=== PATIENT | female | born 1935 | race African-American/Black ===

== ENCOUNTER 2018-06-09 21:56 | Inpatient (IN) | payer MEDICARE ==
[~2018-06-09] VITALS: Ht 165.1 cm; Wt 35.4 kg
--- NOTE | ~2018-06-09 | MORECARE ---
CASE MANAGEMENT DISCHARGE SUMMARY PATIENT: NOAH CASTILLO UNIT: [id number] ADM DATE: 06/09/18 AGE: 82 : 35 SEX: F ROOM/BED: D.7200 AUTHOR: ASUNCION GOLDSTEIN PHYSICIAN: REFERRING PHYSICIAN: RAH FULTON MD DATE OF SERVICE: 06/16/18 Discharge Plan Patient Name: NOAH CASTILLO Facility: [facility]:[place] : 1935 Planned Disposition: Home Anticipated Discharge Date: 06/13/18 Discharge Date: Expected LOS: 4 Initial Reviewer: [email or web address] Initial Review Date: 06/10/2018 Generated: 06/16/18 10:48 am Comments DCP- Discharge Planning Updated by [email or web address]: Alison Vann on 06/15/18 7:[address] LATE ENTRY 1400 CM RECEIVED AN ORDER FOR ACUTE REHAB FOR PATIENT. PATIENT LIVES IN THE [place], [place]. PHYSICAL THERAPY EVAL ORDERED AND COMPLETED. WILL NEED OT EVAL. . ORDER OBTAINED. PATIENT HAS [facility] MEDICARE SOLUTIONS, A MANAGED MEDICARE PROVIDER. WILL NEED TO CONTACT INSURER FOR PREAUTH AND TO DETERMINE IN-NETWORK PROVIDERS. CM WILL NEED TO FOLLOW UP WITH THE PROVIDER IN THE AM. CM TO FOLLOW TO ASSIST WITH DISCHARGE PLANNING. DCP- Discharge Planning Updated by [email or web address]: Jennifer Adames on 06/11/18 7:[address] Patient Name: NOAH CASTILLO Admission Status: ER Accout number: [id number] Admission Date: 06-09-2018 : 1935 Admission Diagnosis: Attending: RAH FULTON Current LOS: 2 Anticipated DC Date: 06-13-2018 Planned Disposition: Home Primary Insurance: [facility] MEDICARE SOLUTIONS Discharge Planning Comments: CM MET WITH PATIENT REGARDING D/C NEEDS AND PLANS. PATIENT STATED SHE LIVES WITH FAMILY AND ONE OF THEM COULD DRIVE HER HOME AT DISCHARGE. PATIENT STATED SHE HAS A RAMP TO ENTER HOME AND NO STAIRS INSIDE. PATIENT STATED SHE IS INDEPENDENT WITH HER CARE AND HAS A CANE AT HOME. PATIENT STATED HER PCP IS DR. BARNHART ([place]) AND USES [facility] IN [place]. PATIENT WAS OFFERED HOME HEALTH AND SHE STATED DR. LÓPEZ HAD ALREADY SET UP AND SHE CAME TO HOSPITAL THE DAY THEY WERE TO COME OUT. PATEINT STATED SHE WILL CALL DR. BARNHART ONCE HOME. CM CALLED DR. GRANT OFFICE AND THEY STATED [facility] WAS OUT OF NETWORK AND PAPERWORK HAD BEEN FAXED TO [facility] [place] TO SEE PATIENT. CM WILL CONTINUE TO FOLLOW PATIENT WITH D/C NEEDS AND PLANS. PCP DR. BARNHART ([place])[phone] [facility] IN [place] ([place]) [phone] [place] ([place]) [phone] Community Recreation Coordinator: Jennifer Adames DCPIA - Discharge Planning Initial Assessment Updated by [email or web address]: Jennifer Adames on 06/11/18 8:43 am * Is the patient Alert and Oriented? Yes * How many steps to enter\exit or inside your home? RAMP * PCP DR. CALLI LÓPEZ * Pharmacy [facility] IN [place] * Preadmission Environment Home with Family * ADLs Independent * Equipment Cane * List name and contact numbers for known caregivers / representatives who currently or will assist patient after discharge: GARRETT ([place]) [phone] SOY ([place]) [phone] * Verbal permission to speak to the caregivers and representatives has been obtained from the patient. Yes * Community resources currently utilized None * Additional services required to return to the preadmission environment? Yes * Can the patient safely return to the preadmission environment? Yes * Has this patient been hospitalized within the prior 30 days at any hospital? No Last DP export: 06/15/18 7:25 Patient Name: NOAH CASTILLO Page 28780 at 0948 All edits/amendments must be made on the electronic document DICTATION DATE: 06/16/18947 FILE DRAWER FINISHER: LAKESHA 06/16/18947 RPT#: [id number] [place] DATE: STATUS: ADM IN [facility] [address] [place] [address] END OF REPORT
--- NOTE | ~2018-06-09 | MORECARE ---
CASE MANAGEMENT DISCHARGE SUMMARY PATIENT: NOAH CASTILLO UNIT: [id number] ADM DATE: 06/09/18 AGE: 83 : 35 SEX: F ROOM/BED: D.6244 AUTHOR: TRISTON,DOC PHYSICIAN: REFERRING PHYSICIAN: RAH FULTON MD DATE OF SERVICE: 06/19/18 Discharge Plan Patient Name: NOAH CASTILLO Facility: [facility]:[place] : 1935 Planned Disposition: Residential Facility Anticipated Discharge Date: 06/19/18 Discharge Date: Expected LOS: 10 Initial Reviewer: [email or web address] Initial Review Date: 06/10/2018 Generated: 06/19/18 1:39 pm Comments DCP- Discharge Planning Updated by [email or web address]: Yair Irizarry on 06/18/18 4:[address] Patient Name: NOAH CASTILLO Encounter No: [id number] : 1935 Primary Insurance: [facility] MEDICARE SOLUTIONS Anticipated DC Date: 06-19-2018 Planned Disposition: Residential Facility External Planned Provider: [facility], MEDICARE REHAB BED DCP follow-up note: CM RECEIVED CALL FROM [facility], , SPOKE TO [facility] WHO INFORMED CM THAT INSURANCE APPROVED REHAB AND THEY CAN SYSTEMS TECHNOLOGIST PT TOMORROW, 06-19-18. CM NOTIFIED PT IN ROOM WHO IS IN AGREEMENT WITH DISCHARGE TO [facility] TOMORROW. FOR DISCHARGE, CALL NURSE REPORT TO [facility], , FAX DISCHARGE INFORMATION TO [facility] AT [phone]. [facility] TO ARRANGE VAN TRANSPORTATION. YAIR IRIZARRY, CASE GEOVANI DCP- Discharge Planning Updated by [email or web address]: Yair Irizarry on 06/18/18 8:[address] Patient Name: NOAH CASTILLO Encounter No: [id number] : 1935 Primary Insurance: [facility] MEDICARE SOLUTIONS Anticipated DC Date: 06-19-2018 Planned Disposition: ALF FACILITY External Planned Provider: [facility], MEDICARE REHAB BED DCP follow-up note: CM RECEIVED CALL FROM PT'S DAUGHTER IN ROOM WHO INFORMED CM THAT THEY WANT TO CANCEL INPATIENT REHAB REFERRAL IN [place] AND SEND REFERRAL TO [facility] IN [place] FOR REHAB. CM MET WITH PT AND DAUGHTER IN ROOM, PT CONFIRMED THAT IS WHAT SHE WANTS TO DO, CHOICE LETTER FOR [facility] COMPLETED. CM CALLED [facility], , SPOKE TO YANET CADE, NOTIFIED TO CANCEL REFERRAL. CM CALLED [facility], , SPOKE TO ROSS WHO THINKS THEY ARE IN NETWORK WITH PT'S INSURANCE AND WILL SCREEN FOR REHAB ADMISSION. CM FAXED REFERRAL TO [facility] AT [phone]. CM WAITING ADMISSION DETERMINATION FROM [facility] AND INSURANCE AUTHORIZATION FOR REHAB SERVICES. YAIR IRIZARRY CASE MANAGEMENT DCP- Discharge Planning Updated by [id number]: Yair Irizarry on 06/17/18 11:[address] Patient Name: NOAH CASTILLO Encounter No: [id number] : 1935 Primary Insurance: [facility] MEDICARE SOLUTIONS Anticipated DC Date: 06-16-2018 Planned Disposition: Inpatient Rehab External Planned Provider: [facility] DCP follow-up note: CM RECEIVED MESSAGE FROM CHRIS OF [facility], THEY DO NOT HAVE INPATIENT REHAB AT THE FACILITY, THEY HAVE INPATIENT DRUG AND ALCOHOL TREATMENT. CM CALLED [facility], SPOKE TO BILL IN CASE MANAGEMENT WHO INFORMED CM THAT [facility] IS IN NETWORK IN [place] WITH PT'S INSURANCE. CM SPOKE TO PT IN ROOM, NOTIFIED OF ABOVE, PT WOULD LIKE CM TO CALL HOSPITAL IN [facility] TO INQUIRE ABOUT INPATIENT REHAB THERE; PT WILL GO TO [place] IF THEY WILL ACCEPT. PT DOES NOT WANT REHAB REFERRAL SENT TO [facility] AT THIS TIME. CM CALLED [facility], , SPOKE TO YANET CADE WHO INFORMED THEY HAVE INPATIENT REHAB AND WILL CONSIDER PT FOR ADMISSION. CM FAXED REFERRAL TO [facility], . CM NOTIFIED RENAL NURSE BRETT AND PT. CM WAITING ADMISSION DETERMINATION FROM [facility], AND INSURANCE AUTHORIZATION FOR INPATIENT REHAB SERVICES. YAIR IRIZARRY CASE MANAGEMENT DCP- Discharge Planning Updated by [id number]: Yair Irizarry on 06/16/18 12:[address] Patient Name: NOAH CASTILLO Encounter No: [id number] : 1935 Primary Insurance: [facility] MEDICARE SOLUTIONS Anticipated DC Date: 06-16-2018 Planned Disposition: Inpatient Rehab External Planned Provider: [facility] DCP follow-up note: CM SPOKE TO PT AND DAUGHTER IN ROOM REGARDING INPATIENT REHAB PRESCEENING ORDER. NOAH CASTILLO provided verbal consent to discuss current and ongoing needs with/in the presence of: DAUGHTER JAVIER HAJI ([phone]). CM DISCUSSED AVAILABILITY OF INPATIENT REHAB, ALF REHAB PROVIDERS WELL DISCUSSED PT HAVING MANAGED MEDICARE THAT PROVIDERS MAY OR MAY NOT BE IN NETWORK AND THAT INSURANCE MAY OR MAY NOT PAY FOR REQUESTED INPATIENT REHAB SERVICES. PT AND DAUGHTER REPORT THAT PT'S FAMILY IS LOCATED IN [place], PT DOES NOT WANT TO CONSIDER GOING TO A ALF FACILITY AND WANTS REHAB AT THE [facility] IN [place]. PT'S SPOUSE, WHEN ALIVE, WAS TREATED AT THE REHAB AND PT WORKED AT THE [facility] IN THE PAST. IMPORTANT MESSAGE FROM MEDICARE PROVIDED AND EXPLAINED. CM CALLED [facility], , SPOKE TO RAVI WHO REPORTS THEY WILL CONSIDER PT FOR REHAB ADMISSION AND THEY ARE NOT IN NETWORK WITH PT'S INSURANCE COMPANY. RAVI WILL CALL PT AND DISCUSS ADMISSION AND IF ACCEPTED, ANY COPAYS FOR OUT OF NETWORK SERVICES. CM FAXED REFERRAL TO [facility] IN[facility], . PATIENT WILL REQUIRE OCCUPATIONAL THERAPY EVALUATION FAXED TO [facility] INPATIENT RE[facility], WHEN COMPLETED. CM WAITING ADMISSION DETERMINATION FROM [facility] INPATENT REHAB. Yair Irizarry, CASE MANAGEMENT DCP- Discharge Planning Updated by [id number]: Alison Vann on 06/15/18 7:[address] LATE ENTRY 1400 CM RECEIVED AN ORDER FOR ACUTE REHAB FOR PATIENT. PATIENT LIVES IN THE [place], [place]. PHYSICAL THERAPY EVAL ORDERED AND COMPLETED. WILL NEED OT EVAL. . ORDER OBTAINED. PATIENT HAS [facility] MEDICARE [place], A MANAGED MEDICARE PROVIDER. WILL NEED TO CONTACT INSURER FOR PREAUTH AND TO DETERMINE IN-NETWORK PROVIDERS. CM WILL NEED TO FOLLOW UP WITH THE PROVIDER IN THE AM. CM TO FOLLOW TO ASSIST WITH DISCHARGE PLANNING. DCP- Discharge Planning Updated by [email or web address]: Jennifer Adames on 06/11/18 7:[address] Patient Name: NOAH CASTILLO Admission Status: ER Accout number: [id number] Admission Date: 06-09-2018 : 1935 Admission Diagnosis: Attending: RAH FULTON Current LOS: 2 Anticipated DC Date: 06-13-2018 Planned Disposition: Home Primary Insurance: [facility] MEDICARE SOLUTIONS Discharge Planning Comments: CM MET WITH PATIENT REGARDING D/C NEEDS AND PLANS. PATIENT STATED SHE LIVES WITH FAMILY AND ONE OF THEM COULD DRIVE HER HOME AT DISCHARGE. PATIENT STATED SHE HAS A RAMP TO ENTER HOME AND NO STAIRS INSIDE. PATIENT STATED SHE IS INDEPENDENT WITH HER CARE AND HAS A CANE AT HOME. PATIENT STATED HER PCP IS DR. BARNHART ([place]) AND USES [facility] IN [place]. PATIENT WAS OFFERED HOME HEALTH AND SHE STATED DR. LÓPEZ HAD ALREADY SET UP HH AND SHE CAME TO HOSPITAL THE DAY THEY WERE TO COME OUT. PATEINT STATED SHE WILL CALL DR. BARNHART ONCE HOME. CM CALLED DR. GRANT OFFICE AND THEY STATED [facility] WAS OUT OF NETWORK AND PAPERWORK HAD BEEN FAXED TO [facility] [place] TO SEE PATIENT. CM WILL CONTINUE TO FOLLOW PATIENT WITH D/C NEEDS AND PLANS. PCP DR. BARNHART ([place])[phone] [facility] IN [place] ([place]) [phone] [place] ([place]) [phone] Hog Scalder: Jennifer Adames DCPIA - Discharge Planning Initial Assessment Updated by [id number]: Jennifer Adames on 06/11/18 8:43 am * Is the patient Alert and Oriented? Yes * How many steps to enter\exit or inside your home? RAMP * PCP DR. CALLI LÓPEZ * Pharmacy [facility] IN [place] * Preadmission Environment Home with Family * ADLs Independent * Equipment Cane * List name and contact numbers for known caregivers / representatives who currently or will assist patient after discharge: GARRETT ([place]) [phone] SOY ([place]) [phone] * Verbal permission to speak to the caregivers and representatives has been obtained from the patient. Yes * Community resources currently utilized None * Additional services required to return to the preadmission environment? Yes * Can the patient safely return to the preadmission environment? Yes * Has this patient been hospitalized within the prior 30 days at any hospital? No Coverage Notice Reviewer: JUAN DAVID Irizarry Notice Issued Date-Time: 06/16/2018 12:20 Notice Type: IM Discharge Notice Notice Delivered To: Patient Relationship to Patient: Binder Chainstitch Name: Delivery Method: HAND - Hand Delivered Aleah Days: Prior Verbal Notification: Recipient Understood Notice: Yes Recipient Signature: Yes Med Rec Note Co-signed by Attending: Coverage Notice Comment: Reviewer: JUAN DAVID Irizarry Notice Issued Date-Time: 06/18/2018 8:50 Notice Type: Patient Choice Letter Notice Delivered To: Patient Relationship to Patient: Binder Chainstitch Name: Delivery Method: HAND - Hand Delivered Aleah Days: Prior Verbal Notification: Recipient Understood Notice: Yes Recipient Signature: Yes Med Rec Note Co-signed by Attending: Coverage Notice Comment: [facility] Reviewer: JUAN DAVID Irizarry Notice Issued Date-Time: 06/19/2018 9:10 Notice Type: IM Discharge Notice Notice Delivered To: Patient Relationship to Patient: Binder Chainstitch Name: Delivery Method: HAND - Hand Delivered Aleah Days: Prior Verbal Notification: Recipient Understood Notice: Yes Recipient Signature: Yes Med Rec Note Co-signed by Attending: Coverage Notice Comment: Last DP export: 06/18/18 4:21 Patient Name: NOAH CASTILLO Page [id number] at 1240 All edits/amendments must be made on the electronic document DICTATION DATE: 06/19/18 1239 GEAR NICKER: LAKESHA 06/19/18 1239 RPT#: [id number] DC DATE: STATUS: ADM IN [facility] [address] [place] [address] END OF REPORT
--- NOTE | ~2018-06-09 | DS ---
PATIENT:NOAH PARKS :[birth year] MEDICAL RECORD: [id number] DISCHARGE SUMMARY ADMISSION DATE: 06/09/18 DISCHARGE DATE: 06/19/18 HISTORY OF PRESENT ILLNESS: Ms. Parks is a very pleasant 83-year-old black female that I follow in [place] with chronic kidney disease due to longstanding hypertension and arteriosclerosis. She has been stable, but not seen by me within the past year. She was transferred here following an evaluation in the [place] [facility] Room revealing acute renal failure with creatinine over 9 and continued weight loss and chronic anemia and was transferred here for treatment for her acute renal failure. HOSPITAL COURSE: The patient was felt to be volume depleted and was given IV therapy and with IV therapy, her renal function improved and returned to baseline, so that her last creatinine was 1.9, she did not require dialysis. She did have a urinary tract infection that was treated with appropriate antibiotic therapy. During this time, had an episode of gout, treated with steroids, allopurinol and colchicine that improved. She had hypophosphatemia and hypomagnesemia that were treated aggressively. She did have positive stools for blood. Begun on Epogen. Had an EGD by Dr. Phillip that revealed gastritis and will continue her Carafate and PPI at the [facility]. Her daughters were with her and requested rehab therapy and she was accepted for [facility]. At the time of discharge, she was back to baseline. Last blood pressures were stable. Last hemoglobin 10, on erythropoietin. Her last creatinine was 1.9, calcium of 8. We will follow her phosphorus as an outpatient. I did give her a final dose of Neutra-Phos on discharge. DISCHARGE MEDICATIONS: Carafate 1 gram b.i.d., colchicine 0.6 daily, Megace 40 mg daily, Pepcid 20 mg b.i.d., Ultram p.r.n., Zyloprim 100 mg daily, Remeron 7.5 at bedtime, Nephro-Yolanda 1 daily, Epogen 4000 daily, Plavix 75 mg daily. We will see her in 2-4 weeks as follow up in [place]. I have reviewed all the above with her daughters at bedside. DISCHARGE DIAGNOSES: 1. Acute renal failure due to volume depletion, resolved. 2. Urinary tract infection. 3. Acute gout. 4. Hypophosphatemia. 5. Hypomagnesemia. 6. Chronic anemia, on erythropoietin therapy. PLAN: The patient will be discharged to [facility] today. She will continue the above meds as outlined above. I will see her in 2-4 weeks in the office in [place]. I reviewed all the above with her daughters. TRANSINT:[id number] Voice Confirmation ID: [id number] DOCUMENT ID: [id number] CC: [facility] in [place] DISCHARGE SUMMARY REPORT [id number] NOAH PARKS, ISABEL MONTEZ at 0741 CC: [id number] DICTATION DATE: 06/19/18 0746 SHIRT PRESSER: 06/19/18 0833 DIS IN 06/19/18 [facility] [address] [place] [address]
--- NOTE | ~2018-06-09 | MORECARE ---
CASE MANAGEMENT DISCHARGE SUMMARY PATIENT: NOAH CASTILLO UNIT: [id number] ADM DATE: 06/09/18 AGE: 82 : 35 SEX: F ROOM/BED: D.8916 AUTHOR: ASUNCION GOLDSTEIN PHYSICIAN: REFERRING PHYSICIAN: RAH FULTON MD DATE OF SERVICE: 06/16/18 Discharge Plan Patient Name: NOAH CASTILLO Facility: [facility]:[place] : 1935 Planned Disposition: Home Anticipated Discharge Date: 06/16/18 Discharge Date: Expected LOS: 7 Initial Reviewer: [email or web address] Initial Review Date: 06/10/2018 Generated: 06/16/18 1:38 pm Comments DCP- Discharge Planning Updated by [email or web address]: Alison Vann on 06/15/18 7:[address] LATE ENTRY 1400 CM RECEIVED AN ORDER FOR ACUTE REHAB FOR PATIENT. PATIENT LIVES IN THE [place], [place]. PHYSICAL THERAPY EVAL ORDERED AND COMPLETED. WILL NEED OT EVAL. . ORDER OBTAINED. PATIENT HAS [facility] MEDICARE SOLUTIONS, A MANAGED MEDICARE PROVIDER. WILL NEED TO CONTACT INSURER FOR PREAUTH AND TO DETERMINE IN-NETWORK PROVIDERS. CM WILL NEED TO FOLLOW UP WITH THE PROVIDER IN THE AM. CM TO FOLLOW TO ASSIST WITH DISCHARGE PLANNING. DCP- Discharge Planning Updated by [email or web address]: Jennifer Adames on 06/11/18 7:[address] Patient Name: NOAH CASTILLO Admission Status: ER Accout number: [id number] Admission Date: 06-09-2018 : 1935 Admission Diagnosis: Attending: RAH FULTON Current LOS: 2 Anticipated DC Date: 06-13-2018 Planned Disposition: Home Primary Insurance: [facility] MEDICARE SOLUTIONS Discharge Planning Comments: CM MET WITH PATIENT REGARDING D/C NEEDS AND PLANS. PATIENT STATED SHE LIVES WITH FAMILY AND ONE OF THEM COULD DRIVE HER HOME AT DISCHARGE. PATIENT STATED SHE HAS A RAMP TO ENTER HOME AND NO STAIRS INSIDE. PATIENT STATED SHE IS INDEPENDENT WITH HER CARE AND HAS A CANE AT HOME. PATIENT STATED HER PCP IS DR. BARNHART ([place]) AND USES [facility] IN [place]. PATIENT WAS OFFERED HOME HEALTH AND SHE STATED DR. LÓPEZ HAD ALREADY SET UP AND SHE CAME TO HOSPITAL THE DAY THEY WERE TO COME OUT. PATEINT STATED SHE WILL CALL DR. BARNHART ONCE HOME. CM CALLED DR. GRANT OFFICE AND THEY STATED [facility] WAS OUT OF NETWORK AND PAPERWORK HAD BEEN FAXED TO [facility] [place] TO SEE PATIENT. CM WILL CONTINUE TO FOLLOW PATIENT WITH D/C NEEDS AND PLANS. PCP DR. BARNHART ([place])[phone] [facility] [place] ([place]) [phone] [place] ([place]) [phone] Director Summer Sessions: Jennifer Adames DCPIA - Discharge Planning Initial Assessment Updated by [email or web address]: Jennifer Adames on 06/11/18 8:43 am * Is the patient Alert and Oriented? Yes * How many steps to enter\exit or inside your home? RAMP * PCP DR. CALLI LÓPEZ * Pharmacy [facility] IN [place] * Preadmission Environment Home with Family * ADLs Independent * Equipment Cane * List name and contact numbers for known caregivers / representatives who currently or will assist patient after discharge: GARRETT ([place]) [phone] SOY ([place]) [phone] * Verbal permission to speak to the caregivers and representatives has been obtained from the patient. Yes * Community resources currently utilized None * Additional services required to return to the preadmission environment? Yes * Can the patient safely return to the preadmission environment? Yes * Has this patient been hospitalized within the prior 30 days at any hospital? No External Providers External Provider: OTHER-OTHER Next Contact Date: 06/16/2018 Service Request Date: Service Type: Resolution: Reviewer: Comments: Last DP export: 06/16/18 8:48 Patient Name: NOAH CASTILLO Page [id number] at 1239 All edits/amendments must be made on the electronic document DICTATION DATE: 06/16/181237 SAS PROGRAMMER: LAKESHA 06/16/181237 RPT#: [id number] DC DATE: STATUS: ADM IN [facility] [address] [place] [address] END OF REPORT
--- NOTE | ~2018-06-09 | MORECARE ---
CASE MANAGEMENT DISCHARGE SUMMARY PATIENT: NOAH CASTILLO UNIT: [id number] ADM DATE: 06/09/18 AGE: 83 : 35 SEX: F ROOM/BED: D.4379 AUTHOR: ASUNCION GOLDSTEIN PHYSICIAN: REFERRING PHYSICIAN: RAH FULTON MD DATE OF SERVICE: 06/19/18 Discharge Plan Patient Name: NOAH CASTILLO Facility: [facility]:[place] : 1935 Planned Disposition: Retirement Facility Anticipated Discharge Date: 06/19/18 Discharge Date: Expected LOS: 10 Initial Reviewer: [id number] Initial Review Date: 06/10/2018 Generated: 06/19/18 1:46 pm Comments DCP- Discharge Planning Updated by [id number]: Yair Irizarry on 06/19/18 11:[address] Patient Name: NOAH CASTILLO Encounter No: [id number] : 1935 Primary Insurance: [facility] MEDICARE SOLUTIONS Anticipated DC Date: 06-19-2018 Planned Disposition: Retirement Facility External Planned Provider: [facility], MEDICARE REHAB BED DCP follow-up note: CM RECEIVED DISCHARGE ORDER, SPOKE TO PT AND DAUGHTER IN ROOM, BOTH IN AGREEMENT WITH DISCHARGE TODAY TO [facility] FOR REHAB. IMPORTANT MESSAGE FROM MEDICARE PROVIDED AND EXPLAINED. CM SPOKE TO ROSS OF [facility], THEY WILL [facility] SPECIALIST PT IN [place] AFTER LUNCH TODAY. CM FAXED DISCHARGE INFORMATION TO [facility] AT [phone]. CALL NURSE REPORT TO [facility], , [facility] TO ARRANGE VAN TRANSPORTATION. YAIR IRIZARRY, CASE MANAGEMENT DCP- Discharge Planning Updated by [email or web address]: Yair Irizarry on 06/18/18 4:[address] Patient Name: NOAH CASTILLO Encounter No: [id number] : 1935 Primary Insurance: [facility] MEDICARE SOLUTIONS Anticipated DC Date: 06-19-2018 Planned Disposition: Retirement Facility External Planned Provider: [facility], MEDICARE REHAB BED DCP follow-up note: CM RECEIVED CALL FROM [facility], , SPOKE TO ROSS WHO INFORMED CM THAT INSURANCE APPROVED REHAB AND THEY CAN [facility] SPECIALIST PT TOMORROW, 06-19-18. CM NOTIFIED PT IN ROOM WHO IS IN AGREEMENT WITH DISCHARGE TO [facility] TOMORROW. FOR DISCHARGE, CALL NURSE REPORT TO [facility], , FAX DISCHARGE INFORMATION TO [facility] AT [phone]. [facility] TO ARRANGE VAN TRANSPORTATION. MICHAEL HITCHCOCK MANAGEMENT DCP- Discharge Planning Updated by [id number]: Yair Irizarry on 06/18/18 8:[address] Patient Name: NOAH CASTILLO Encounter No: [id number] : 1935 Primary Insurance: [facility] MEDICARE SOLUTIONS Anticipated DC Date: 06-19-2018 Planned Disposition: [facility]DC FACILITY External Planned Provider: [facility] MEDICARE REHAB BED DCP follow-up note: CM RECEIVED CALL FROM PT'S DAUGHTER IN ROOM WHO INFORMED CM THAT THEY WANT TO CANCEL INPATIENT REHAB REFERRAL IN [place] AND SEND REFERRAL TO [facility] IN [place] FOR REHAB. CM MET WITH PT AND DAUGHTER IN ROOM, PT CONFIRMED THAT IS WHAT SHE WANTS TO DO, CHOICE LETTER FOR [facility] COMPLETED. CM CALLED [facility], , SPOKE TO YANET CADE, NOTIFIED TO CANCEL REFERRAL. CM CALLED [facility], , SPOKE TO ROSS WHO THINKS THEY ARE IN NETWORK WITH PT'S INSURANCE AND WILL SCREEN FOR REHAB ADMISSION. CM FAXED REFERRAL TO [facility] AT [phone]. CM WAITING ADMISSION DETERMINATION FROM [facility] AND INSURANCE AUTHORIZATION FOR REHAB SERVICES. MICHAEL HITCHCOCK MANAGEMENT DCP- Discharge Planning Updated by [id number]: Yair Irizarry on 06/17/18 11:[address] Patient Name: NOAH CASTILLO Encounter No: [id number] : 1935 Primary Insurance: [facility] MEDICARE SOLUTIONS Anticipated DC Date: 06-16-2018 Planned Disposition: Inpatient Rehab External Planned Provider: [facility] INPATIENT REH[facility] DCP follow-up note: CM RECEIVED MESSAGE FROM CHRIS OF [facility], THEY DO NOT HAVE INPATIENT REHAB AT THE FACILITY, THEY HAVE INPATIENT DRUG AND ALCOHOL TREATMENT. CM CALLED [facility], SPOKE TO BILL IN CASE MANAGEMENT WHO INFORMED CM THAT [facility] IS IN NETWORK IN [place] WITH PT'S INSURANCE. CM SPOKE TO PT IN ROOM, NOTIFIED OF ABOVE, PT WOULD LIKE CM TO CALL HOSPITAL IN [facility] TO INQUIRE ABOUT INPATIENT REHAB THERE; PT WILL GO TO [place] IF THEY WILL ACCEPT. PT DOES NOT WANT REHAB REFERRAL SENT TO [facility] AT THIS TIME. CM CALLED [facility], , SPOKE TO YANET CADE WHO INFORMED THEY HAVE INPATIENT REHAB AND WILL CONSIDER PT FOR ADMISSION. CM FAXED REFERRAL TO [facility], . CM NOTIFIED RENAL NURSE BRETT AND PT. CM WAITING ADMISSION DETERMINATION FROM [facility], AND INSURANCE AUTHORIZATION FOR INPATIENT REHAB SERVICES. YAIR IRIZARYR, CASE MANAGEMENT DCP- Discharge Planning Updated by [id number]: Yair Irizarry on 06/16/18 12:[address] Patient Name: NOAH CASTILLO Encounter No: [id number] : 1935 Primary Insurance: [facility] MEDICARE SOLUTIONS Anticipated DC Date: 06-16-2018 Planned Disposition: Inpatient Rehab External Planned Provider: [facility] INPATIENT REHAB DCP follow-up note: CM SPOKE TO PT AND DAUGHTER IN ROOM REGARDING INPATIENT REHAB PRESCEENING ORDER. NOAH CASTILLO provided verbal consent to discuss current and ongoing needs with/in the presence of: DAUGHTER JAVIER HAJI ([phone]). CM DISCUSSED AVAILABILITY OF INPATIENT REHAB, [facility] REHAB PROVIDERS WELL DISCUSSED PT HAVING MANAGED MEDICARE THAT PROVIDERS MAY OR MAY NOT BE IN NETWORK AND THAT INSURANCE MAY OR MAY NOT PAY FOR REQUESTED INPATIENT REHAB SERVICES. PT AND DAUGHTER REPORT THAT PT'S FAMILY IS LOCATED IN [place], PT DOES NOT WANT TO CONSIDER GOING TO A [facility] FACILITY AND WANTS REHAB AT THE [facility] IN [place]. PT'S SPOUSE, WHEN ALIVE, WAS TREATED AT THE REHAB AND PT WORKED AT THE MEDICAL CENTER IN THE PAST. IMPORTANT MESSAGE FROM MEDICARE PROVIDED AND EXPLAINED. CM CALLED [facility], , SPOKE TO RAVI WHO REPORTS THEY WILL CONSIDER PT FOR REHAB ADMISSION AND THEY ARE NOT IN NETWORK WITH PT'S INSURANCE COMPANY. RAVI WILL CALL PT AND DISCUSS ADMISSION AND IF ACCEPTED, ANY COPAYS FOR OUT OF NETWORK SERVICES. CM FAXED REFERRAL TO [facility] INPATIENT REHAB, . PATIENT WILL REQUIRE OCCUPATIONAL THERAPY EVALUATION FAXED TO [facility], WHEN COMPLETED. CM WAITING ADMISSION DETERMINATION FROM [facility] INPATENT REHAB. Yair Irizarry, CASE MANAGEMENT DCP- Discharge Planning Updated by [id number]: Alison Soo on 06/15/18 7:[address] LATE ENTRY 1400 CM RECEIVED AN ORDER FOR ACUTE REHAB FOR PATIENT. PATIENT LIVES IN THE [place], [place]. PHYSICAL THERAPY EVAL ORDERED AND COMPLETED. WILL NEED OT EVAL. . ORDER OBTAINED. PATIENT HAS [facility] MEDICARE SOLUTIONS, A MANAGED MEDICARE PROVIDER. WILL NEED TO CONTACT INSURER FOR PREAUTH AND TO DETERMINE IN-NETWORK PROVIDERS. CM WILL NEED TO FOLLOW UP WITH THE PROVIDER IN THE AM. CM TO FOLLOW TO ASSIST WITH DISCHARGE PLANNING. DCP- Discharge Planning Updated by [id number]: Jennifer Adames on 06/11/18 7:[address] Patient Name: NOAH CASTILLO Admission Status: ER Accout number: [id number] Admission Date: 06-09-2018 : 1935 Admission Diagnosis: Attending: RAH FULTON Current LOS: 2 Anticipated DC Date: 06-13-2018 Planned Disposition: Home Primary Insurance: [facility] MEDICARE SOLUTIONS Discharge Planning Comments: CM MET WITH PATIENT REGARDING D/C NEEDS AND PLANS. PATIENT STATED SHE LIVES WITH FAMILY AND ONE OF THEM COULD DRIVE HER HOME AT DISCHARGE. PATIENT STATED SHE HAS A RAMP TO ENTER HOME AND NO STAIRS INSIDE. PATIENT STATED SHE IS INDEPENDENT WITH HER CARE AND HAS A CANE AT HOME. PATIENT STATED HER PCP IS DR. BARNHART ([place]) AND USES [facility] IN [place]. PATIENT WAS OFFERED HOME HEALTH AND SHE STATED DR. LÓPEZ HAD ALREADY SET UP HH AND SHE CAME TO HOSPITAL THE DAY THEY WERE TO COME OUT. PATEINT STATED SHE WILL CALL DR. BARNHART ONCE HOME. CM CALLED DR. GRANT OFFICE AND THEY STATED [facility] WAS OUT OF NETWORK AND PAPERWORK HAD BEEN FAXED TO [facility] IN [place] TO SEE PATIENT. CM WILL CONTINUE TO FOLLOW PATIENT WITH D/C NEEDS AND PLANS. PCP DR. BARNHART ([place])[phone] [facility] IN [place] GAR[place]TT ([place]) [phone] [place] ([place]) [phone] Pearl Peller: Jennifer TOUSSAINTA - Discharge Planning Initial Assessment Updated by [email or web address]: Jennifer Adames on 06/11/18 8:43 am * Is the patient Alert and Oriented? Yes * How many steps to enter\exit or inside your home? RAMP * PCP DR. CALLI LÓPEZ * Pharmacy [facility] IN [place] * Preadmission Environment Home with Family * ADLs Independent * Equipment Cane * List name and contact numbers for known caregivers / representatives who currently or will assist patient after discharge: GARRETT ([place]) [phone] SOY ([place]) [phone] * Verbal permission to speak to the caregivers and representatives has been obtained from the patient. Yes * Community resources currently utilized None * Additional services required to return to the preadmission environment? Yes * Can the patient safely return to the preadmission environment? Yes * Has this patient been hospitalized within the prior 30 days at any hospital? No Coverage Notice Reviewer: [id number] Irizarry Notice Issued Date-Time: 06/18/2018 8:50 Notice Type: Patient Choice Letter Notice Delivered To: Patient Relationship to Patient: Supervisor Estimator And Drafter Name: Delivery Method: HAND - Hand Delivered Aleah Days: Prior Verbal Notification: Recipient Understood Notice: Yes Recipient Signature: Yes Med Rec Note Co-signed by Attending: Coverage Notice Comment: [facility] Reviewer: [id number] Irizarry Notice Issued Date-Time: 06/19/2018 9:10 Notice Type: IM Discharge Notice Notice Delivered To: Patient Relationship to Patient: Supervisor Estimator And Drafter Name: Delivery Method: HAND - Hand Delivered Aleah Days: Prior Verbal Notification: Recipient Understood Notice: Yes Recipient Signature: Yes Med Rec Note Co-signed by Attending: Coverage Notice Comment: Reviewer: [id number] Irizarry Notice Issued Date-Time: 06/16/2018 12:20 Notice Type: IM Discharge Notice Notice Delivered To: Patient Relationship to Patient: Supervisor Estimator And Drafter Name: Delivery Method: HAND - Hand Delivered Aleah Days: Prior Verbal Notification: Recipient Understood Notice: Yes Recipient Signature: Yes Med Rec Note Co-signed by Attending: Coverage Notice Comment: Last DP export: 06/19/18 11:39 Patient Name: NOAH CASTILLO Page [id number] at 1247 All edits/amendments must be made on the electronic document DICTATION DATE: 06/19/181245 SUPERVISOR SHUTTLE VENEERING: LAKESHA 06/19/18 1246 RPT#: [id number] DC DATE: STATUS: ADM IN [facility] [address] [place] [address] END OF REPORT
--- NOTE | ~2018-06-09 | MORECARE ---
CASE MANAGEMENT DISCHARGE SUMMARY PATIENT: NOAH CASTILLO UNIT: [id number] ADM DATE: 06/09/18 AGE: 82 : 35 SEX: F ROOM/BED: D.2129 AUTHOR: ASUNCION GOLDSTEIN PHYSICIAN: REFERRING PHYSICIAN: RAH FULTON MD DATE OF SERVICE: 06/11/18 Discharge Plan Patient Name: NOAH CASITLLO [facility] [facility] 1935 Planned Disposition: Home Anticipated Discharge Date: 06/13/18 Discharge Date: Expected LOS: 4 Initial Reviewer: [email or web address] Initial Review Date: 06/10/2018 Generated: 06/11/18 9:46 am DCPIA - Discharge Planning Initial Assessment Updated by [id number]: Jennifer Adames on 06/11/18 8:43 am * Is the patient Alert and Oriented? Yes * How many steps to enter\exit or inside your home? RAMP * PCP DR. CALLI LÓPEZ * Pharmacy [facility] IN [place] * Preadmission Environment Home with Family * ADLs Independent * Equipment Cane * List name and contact numbers for known caregivers / representatives who currently or will assist patient after discharge: GARRETT ([place]) [phone] SOY ([place]) [phone] * Verbal permission to speak to the caregivers and representatives has been obtained from the patient. Yes * Community resources currently utilized None * Additional services required to return to the preadmission environment? Yes * Can the patient safely return to the preadmission environment? Yes * Has this patient been hospitalized within the prior 30 days at any hospital? No Patient Name: NOAH CASTILLO Page [phone] at 0847 All edits/amendments must be made on the electronic document DICTATION DATE: 06/11/18845 ASSISTANT CORPORATE CONTROLLER: LAKESHA 06/11/18845 RPT#: [id number] DC DATE: STATUS: ADM IN [facility] [address] [place] [address] END OF REPORT
--- NOTE | ~2018-06-09 | MORECARE ---
CASE MANAGEMENT DISCHARGE SUMMARY PATIENT: NOAH CASTILLO UNIT: [id number] ADM DATE: 06/09/18 AGE: 82 : 35 SEX: F ROOM/BED: D.5718 AUTHOR: TRISTONDOC PHYSICIAN: REFERRING PHYSICIAN: RAH FULTON MD DATE OF SERVICE: 06/17/18 Discharge Plan Patient Name: NOAH CASTILLO Facility: [facility]:[place] : 1935 Planned Disposition: Inpatient Rehab Anticipated Discharge Date: 06/16/18 Discharge Date: Expected LOS: 7 Initial Reviewer: [id number] Initial Review Date: 06/10/2018 Generated: 06/17/18 1:21 pm Comments DCP- Discharge Planning Updated by [id number]: Michael Kelly on 06/16/18 12:[address] Patient Name: NOAH CASTILLO Encounter No: [id number] : 1935 Primary Insurance: [facility] MEDIC[employer] SOLUTIONS Anticipated DC Date: 06-16-2018 Planned Disposition: Inpatient Rehab External Planned Provider: [facility] INPATIENT REHAB DCP follow-up note: CM SPOKE TO PT AND DAUGHTER IN ROOM REGARDING INPATIENT REHAB PRESCEENING ORDER. NOAH CASTILLO provided verbal consent to discuss current and ongoing needs with/in the presence of: DAUGHTER JAVIER HAJI ([phone]). CM DISCUSSED AVAILABILITY OF INPATIENT REHAB, [facility] RE[facility] PROVIDERS WELL DISCUSSED PT HAVING MANAGED MEDICARE THAT PROVIDERS MAY OR MAY NOT BE IN NETWORK AND THAT INSURANCE MAY OR MAY NOT PAY FOR REQUESTED INPATIENT REHAB SERVICES. PT AND DAUGHTER REPORT THAT PT'S FAMILY IS LOCATED IN [place], PT DOES NOT WANT TO CONSIDER GOING TO A [facility] FACILITY AND WANTS REHAB AT THE [facility] IN [place]. PT'S SPOUSE, WHEN ALIVE, WAS TREATED AT THE REHAB AND PT WORKED AT THE MEDICAL CENTER IN THE PAST. IMPORTANT MESSAGE FROM MEDICARE PROVIDED AND EXPLAINED. CM CALLED [facility] INPAT[facility], , SPOKE TO RAVI WHO REPORTS THEY WILL CONSIDER PT FOR REHAB ADMISSION AND THEY ARE NOT IN NETWORK WITH PT'S INSURANCE COMPANY. RAVI WILL CALL PT AND DISCUSS ADMISSION AND IF ACCEPTED, ANY COPAYS FOR OUT OF NETWORK SERVICES. CM FAXED REFERRAL TO [facility] INPATIENT REHAB, . PATIENT WILL REQUIRE OCCUPATIONAL THERAPY EVALUATION FAXED TO [facility] INPATIENT REHAB, WHEN COMPLETED. CM WAITING ADMISSION DETERMINATION FROM [facility] INPATENT REHAB. Michael Kelly, CASE MANAGEMENT DCP- Discharge Planning Updated by [id number]: Alison Vann on 06/15/18 7:[address] LATE ENTRY 1400 CM RECEIVED AN ORDER FOR ACUTE REHAB FOR PATIENT. PATIENT LIVES IN THE [place], [place]. PHYSICAL THERAPY EVAL ORDERED AND COMPLETED. WILL NEED OT EVAL. . ORDER OBTAINED. PATIENT HAS [facility] MEDICARE SOLUTIONS, A MANAGED MEDICARE PROVIDER. WILL NEED TO CONTACT INSURER FOR PREAUTH AND TO DETERMINE IN-NETWORK PROVIDERS. CM WILL NEED TO FOLLOW UP WITH THE PROVIDER IN THE AM. CM TO FOLLOW TO ASSIST WITH DISCHARGE PLANNING. DCP- Discharge Planning Updated by [id number]: Jennifer Adames on 06/11/18 7:[address] Patient Name: NOAH CASTILLO Admission Status: ER Accout number: [id number] Admission Date: 06-09-2018 : 1935 Admission Diagnosis: Attending: RAH FULTON Current LOS: 2 Anticipated DC Date: 06-13-2018 Planned Disposition: Home Primary Insurance: [facility] [employer] SOLUTIONS Discharge Planning Comments: CM MET WITH PATIENT REGARDING D/C NEEDS AND PLANS. PATIENT STATED SHE LIVES WITH FAMILY AND ONE OF THEM COULD DRIVE HER HOME AT DISCHARGE. PATIENT STATED SHE HAS A RAMP TO ENTER HOME AND NO STAIRS INSIDE. PATIENT STATED SHE IS INDEPENDENT WITH HER CARE AND HAS A CANE AT HOME. PATIENT STATED HER PCP IS DR. BARNHART ([place]) AND USES [facility] IN [place]. PATIENT WAS OFFERED HOME HEALTH AND SHE STATED DR. LÓPEZ HAD ALREADY SET UP HH AND SHE CAME TO HOSPITAL THE DAY THEY WERE TO COME OUT. PATEINT STATED SHE WILL CALL DR. BARNHART ONCE HOME. CM CALLED DR. GRANT OFFICE AND THEY STATED [facility] WAS OUT OF NETWORK AND PAPERWORK HAD BEEN FAXED TO [facility] IN [place] TO SEE PATIENT. CM WILL CONTINUE TO FOLLOW PATIENT WITH D/C NEEDS AND PLANS. PCP DR. BARNHART ([place])[phone] [facility] IN [place] GARRETT ([place]) [phone] [place] ([place]) [phone] Data Assistant: Jennifer Adames DCPIA - Discharge Planning Initial Assessment Updated by [id number]: Jennifer Adames on 06/11/18 8:43 am * Is the patient Alert and Oriented? Yes * How many steps to enter\exit or inside your home? RAMP * PCP DR. CALLI LÓPEZ * Pharmacy [facility] IN [place] * Preadmission Environment Home with Family * ADLs Independent * Equipment Cane * List name and contact numbers for known caregivers / representatives who currently or will assist patient after discharge: GARRETT ([place]) [phone] SOY ([place]) [phone] * Verbal permission to speak to the caregivers and representatives has been obtained from the patient. Yes * Community resources currently utilized None * Additional services required to return to the preadmission environment? Yes * Can the patient safely return to the preadmission environment? Yes * Has this patient been hospitalized within the prior 30 days at any hospital? No External Providers External Provider: OTHER-OTHER Next Contact Date: 06/18/2018 Service Request Date: Service Type: Resolution: Reviewer: Comments: External Provider: OTHER-OTHER Next Contact Date: 06/16/2018 Service Request Date: Service Type: Resolution: Reviewer: Comments: Coverage Notice Reviewer: [id number] - Michael Kelly Notice Issued Date-Time: 06/16/2018 12:20 Notice Type: IM Discharge Notice Notice Delivered To: Patient Relationship to Patient: Sql Ssrs Developer Name: Delivery Method: HAND - Hand Delivered Aleah Days: Prior Verbal Notification: Recipient Understood Notice: Yes Recipient Signature: Yes Med Rec Note Co-signed by Attending: Coverage Notice Comment: Last DP export: 06/16/18 1:02 Patient Name: NOAH CASTILLO Page [phone] at 1221 All edits/amendments must be made on the electronic document DICTATION DATE: 06/17/18 1221 DISPLAY MECHANIC: LAKESHA 06/17/18 1221 RPT#: [id number] [place] DATE: STATUS: ADM IN [facility] [address] [place] [address] END OF REPORT
--- NOTE | ~2018-06-09 | MORECARE ---
CASE MANAGEMENT DISCHARGE SUMMARY PATIENT: NOAH CASTILLO UNIT: [id number] ADM DATE: 06/09/18 AGE: 82 : 35 SEX: F ROOM/BED: D.8142 AUTHOR: TRISTONDOC PHYSICIAN: REFERRING PHYSICIAN: RAH FULTON MD DATE OF SERVICE: 06/18/18 Discharge Plan Patient Name: NOAH CASTILLO Facility: [facility]:[place] : 1935 Planned Disposition: Chcf Facility Anticipated Discharge Date: 06/19/18 Discharge Date: Expected LOS: 10 Initial Reviewer: [id number] Initial Review Date: 06/10/2018 Generated: 06/18/18 6:21 pm Comments DCP- Discharge Planning Updated by [id number]: Yair Irizarry on 06/18/18 8:[address] Patient Name: NOAH CASTILLO Encounter No: [id number] : 1935 Primary Insurance: [facility] MEDICARE SOLUTIONS Anticipated DC Date: 06-19-2018 Planned Disposition: PENITENTIARY FACILITY External Planned Provider: [facility] DCP follow-up note: CM RECEIVED CALL FROM PT'S DAUGHTER IN ROOM WHO INFORMED CM THAT THEY WANT TO CANCEL INPATIENT REHAB REFERRAL IN [place] AND SEND REFERRAL TO [facility] IN [place] FOR REHAB. CM MET WITH PT AND DAUGHTER IN ROOM, PT CONFIRMED THAT IS WHAT SHE WANTS TO DO, CHOICE LETTER FOR [facility] COMPLETED. CM CALLED [facility], , SPOKE TO YANET CADE, NOTIFIED TO CANCEL REFERRAL. CM CALLED [facility], , SPOKE TO ROSS WHO THINKS THEY ARE IN NETWORK WITH PT'S INSURANCE AND WILL SCREEN FOR REHAB ADMISSION. CM FAXED REFERRAL TO [facility] AT [phone]. CM WAITING ADMISSION DETERMINATION FROM [facility] AND INSURANCE AUTHORIZATION FOR REHAB SERVICES. YAIR IRIZARRY CASE MANAGEMENT DCP- Discharge Planning Updated by [id number]: Yair Irizarry on 06/17/18 11:[address] Patient Name: NOAH CASTILLO Encounter No: [id number] : 1935 Primary Insurance: [facility] MEDICARE SOLUTIONS Anticipated DC Date: 06-16-2018 Planned Disposition: Inpatient Rehab External Planned Provider: [facility]PATIENT REH[facility] DCP follow-up note: CM RECEIVED MESSAGE FROM [facility] OF [facility], THEY DO NOT HAVE INPATIENT REHAB AT THE FACILITY, THEY HAVE INPATIENT DRUG AND ALCOHOL TREATMENT. CM CALLED [facility], SPOKE TO BILL IN CASE MANAGEMENT WHO INFORMED CM THAT [facility] IS IN NETWORK IN [place] WITH PT'S INSURANCE. CM SPOKE TO PT IN ROOM, NOTIFIED OF ABOVE, PT WOULD LIKE CM TO CALL HOSPITAL IN [facility] TO INQUIRE ABOUT INPATIENT REHAB THERE; PT WILL GO TO [place] IF THEY WILL ACCEPT. PT DOES NOT WANT REHAB REFERRAL SENT TO [facility] AND [facility] AT THIS TIME. CM CALLED [facility], , SPOKE TO YANET CADE WHO INFORMED THEY HAVE INPATIENT REHAB AND WILL CONSIDER PT FOR ADMISSION. CM [facility], . CM NOTIFIED RENAL NURSE BRETT AND PT. CM WAITING ADMISSION DETERMINATION FROM [facility], AND INSURANCE AUTHORIZATION FOR INPATIENT REHAB SERVICES. YAIR IRIZARRY, CASE MANAGEMENT DCP- Discharge Planning Updated by [id number]: Yair Irizarry on 06/16/18 12:[address] Patient Name: NOAH CASTILLO Encounter No: [id number] : 1935 Primary Insurance: [facility] MEDICARE SOLUTIONS Anticipated DC Date: 06-16-2018 Planned Disposition: Inpatient Rehab External Planned Provider: [facility] INPATIENT REHAB DCP follow-up note: CM SPOKE TO PT AND DAUGHTER IN ROOM REGARDING INPATIENT REHAB PRESCEENING ORDER. NOAH CASTILLO provided verbal consent to discuss current and ongoing needs with/in the presence of: DAUGHTER JAVIER HAJI ([phone]). CM DISCUSSED AVAILABILITY OF INPATIENT REHAB, PENITENTIARY REHAB PROVIDERS WELL DISCUSSED PT HAVING MANAGED MEDICARE THAT PROVIDERS MAY OR MAY NOT BE IN NETWORK AND THAT INSURANCE MAY OR MAY NOT PAY FOR REQUESTED INPATIENT REHAB SERVICES. PT AND DAUGHTER REPORT THAT PT'S FAMILY IS LOCATED IN [place], PT DOES NOT WANT TO CONSIDER GOING TO A PENITENTIARY FACILITY AND WANTS REHAB AT THE [facility] IN [place]. PT'S SPOUSE, WHEN ALIVE, WAS TREATED AT THE REHAB AND PT WORKED AT THE MEDICAL CENTER IN THE PAST. IMPORTANT MESSAGE FROM MEDICARE PROVIDED AND EXPLAINED. CM CALLED [facility], , SPOKE TO RAVI WHO REPORTS THEY WILL CONSIDER PT FOR REHAB ADMISSION AND THEY ARE NOT IN NETWORK WITH PT'S INSURANCE COMPANY. RAVI WILL CALL PT AND DISCUSS ADMISSION AND IF ACCEPTED, ANY COPAYS FOR OUT OF NETWORK SERVICES. CM FAXED REFERRAL TO [facility] INPATIENT [facility], . PATIENT WILL REQUIRE OCCUPATIONAL THERAPY EVALUATION FAXED TO [facility] INPATIENT [facility], WHEN COMPLETED. CM WAITING ADMISSION DETERMINATION FROM [facility] INPATENT REHAB. Yair Irizarry, CASE MANAGEMENT DCP- Discharge Planning Updated by [id number]: Alison Vann on 06/15/18 7:[address] LATE ENTRY 1400 CM RECEIVED AN ORDER FOR ACUTE REHAB FOR PATIENT. PATIENT LIVES IN THE [place], [place]. PHYSICAL THERAPY EVAL ORDERED AND COMPLETED. WILL NEED OT EVAL. . ORDER OBTAINED. PATIENT HAS [facility] MEDICARE SOLUTIONS, A MANAGED MEDICARE PROVIDER. WILL NEED TO CONTACT INSURER FOR PREAUTH AND TO DETERMINE IN-NETWORK PROVIDERS. CM WILL NEED TO FOLLOW UP WITH THE PROVIDER IN THE AM. CM TO FOLLOW TO ASSIST WITH DISCHARGE PLANNING. DCP- Discharge Planning Updated by [id number]: Jennifer Adames on 06/11/18 7:[address] Patient Name: NOAH CASTILLO Admission Status: ER Accout number: [id number] Admission Date: 06-09-2018 : 1935 Admission Diagnosis: Attending: RAH FULTON Current LOS: 2 Anticipated DC Date: 06-13-2018 Planned Disposition: Home Primary Insurance: [facility] MEDICARE SOLUTIONS Discharge Planning Comments: CM MET WITH PATIENT REGARDING D/C NEEDS AND PLANS. PATIENT STATED SHE LIVES WITH FAMILY AND ONE OF THEM COULD DRIVE HER HOME AT DISCHARGE. PATIENT STATED SHE HAS A RAMP TO ENTER HOME AND NO STAIRS INSIDE. PATIENT STATED SHE IS INDEPENDENT WITH HER CARE AND HAS A CANE AT HOME. PATIENT STATED HER PCP IS DR. BARNHART ([place]) AND USES [facility] IN [place]. PATIENT WAS OFFERED HOME HEALTH AND SHE STATED DR. LÓPEZ HAD ALREADY SET UP HH AND SHE CAME TO HOSPITAL THE DAY THEY WERE TO COME OUT. PATEINT STATED SHE WILL CALL DR. BARNHART ONCE HOME. CM CALLED DR. GRANT OFFICE AND THEY STATED [facility] WAS OUT OF NETWORK AND PAPERWORK HAD BEEN FAXED TO [facility] [place] TO SEE PATIENT. CM WILL CONTINUE TO FOLLOW PATIENT WITH D/C NEEDS AND PLANS. PCP DR. BARNHART ([place])[phone] [facility] IN [place] ([place]) [phone] [place] ([place]) [phone] Tax Appraiser: Jennifer Adames DCPIA - Discharge Planning Initial Assessment Updated by [email or web address]: Jennifer Adames on 06/11/18 8:43 am * Is the patient Alert and Oriented? Yes * How many steps to enter\exit or inside your home? RAMP * PCP DR. CALLI LÓPEZ * Pharmacy [facility] IN [place] * Preadmission Environment Home with Family * ADLs Independent * Equipment Cane * List name and contact numbers for known caregivers / representatives who currently or will assist patient after discharge: GARRETT ([place]) [phone] SOY ([place]) [phone] * Verbal permission to speak to the caregivers and representatives has been obtained from the patient. Yes * Community resources currently utilized None * Additional services required to return to the preadmission environment? Yes * Can the patient safely return to the preadmission environment? Yes * Has this patient been hospitalized within the prior 30 days at any hospital? No Coverage Notice Reviewer: [id number] Melissa Irizarry Notice Issued Date-Time: 06/16/2018 12:20 Notice Type: IM Discharge Notice Notice Delivered To: Patient Relationship to Patient: Special Weapons And Tactics Officer Name: Delivery Method: HAND - Hand Delivered Aleah Days: Prior Verbal Notification: Recipient Understood Notice: Yes Recipient Signature: Yes Med Rec Note Co-signed by Attending: Coverage Notice Comment: Reviewer: [id number] Irizarry Notice Issued Date-Time: 06/18/2018 8:50 Notice Type: Patient Choice Letter Notice Delivered To: Patient Relationship to Patient: Special Weapons And Tactics Officer Name: Delivery Method: HAND - Hand Delivered Aleah Days: Prior Verbal Notification: Recipient Understood Notice: Yes Recipient Signature: Yes Med Rec Note Co-signed by Attending: Coverage Notice Comment: [facility] Last DP export: 06/18/18 8:20 Patient Name: NOAH CASTILLO Page 90557 at 1721 All edits/amendments must be made on the electronic document DICTATION DATE: 06/18/181719 ENGINEERING GROUP LEADER: LAKESHA 06/18/181719 RPT#: [id number] DC DATE: STATUS: ADM IN [facility] [address] [place] [address] END OF REPORT
--- NOTE | ~2018-06-09 | MORECARE ---
CASE MANAGEMENT DISCHARGE SUMMARY PATIENT: NOAH CASTILLO UNIT: [id number] ADM DATE: 06/09/18 AGE: 82 : 35 SEX: F ROOM/BED: D.8844 AUTHOR: ASUNCION GOLDSTEIN PHYSICIAN: REFERRING PHYSICIAN: RAH FULTON MD DATE OF SERVICE: 06/11/18 Discharge Plan Patient Name: NOAH CASTILLO Facility: [facility]:[place] : 1935 Planned Disposition: Home Anticipated Discharge Date: 06/13/18 Discharge Date: Expected LOS: 4 Initial Reviewer: [id number] Initial Review Date: 06/10/2018 Generated: 06/11/18 9:59 am Comments DCP- Discharge Planning Updated by [id number]: Jennifer Adames on 06/11/18 7:[address] Patient Name: NOAH CASTILLO Admission Status: ER Accout number: [id number] Admission Date: 06-09-2018 : 1935 Admission Diagnosis: Attending: RAH FULTON Current LOS: 2 Anticipated DC Date: 06-13-2018 Planned Disposition: Home Primary Insurance: [facility] MEDICARE SOLUTIONS Discharge Planning Comments: CM MET WITH PATIENT REGARDING D/C NEEDS AND PLANS. PATIENT STATED SHE LIVES WITH FAMILY AND ONE OF THEM COULD DRIVE HER HOME AT DISCHARGE. PATIENT STATED SHE HAS A RAMP TO ENTER HOME AND NO STAIRS INSIDE. PATIENT STATED SHE IS INDEPENDENT WITH HER CARE AND HAS A CANE AT HOME. PATIENT STATED HER PCP IS DR. BARNHART ([place]) AND USES [facility] IN [place]. PATIENT WAS OFFERED HOME HEALTH AND SHE STATED DR. LÓPEZ HAD ALREADY SET UP HH AND SHE CAME TO HOSPITAL THE DAY THEY WERE TO COME OUT. PATEINT STATED SHE WILL CALL DR. BARNHART ONCE HOME. CM CALLED DR. GRANT OFFICE AND THEY STATED [facility] WAS OUT OF NETWORK AND PAPERWORK HAD BEEN FAXED TO [facility] [place] TO SEE PATIENT. CM WILL CONTINUE TO FOLLOW PATIENT WITH D/C NEEDS AND PLANS. PCP DR. BARNHART ([place])[phone] [facility] IN [place] ([place]) [phone] SO[place] ([place]) [phone] Stock Replenisher: Jennifer Adames DCPIA - Discharge Planning Initial Assessment Updated by [id number]: Jennifer Adames on 06/11/18 8:43 am * Is the patient Alert and Oriented? Yes * How many steps to enter\exit or inside your home? RAMP * PCP DR. CALLI LÓPEZ * Pharmacy [facility] IN [place] * Preadmission Environment Home with Family * ADLs Independent * Equipment Cane * List name and contact numbers for known caregivers / representatives who currently or will assist patient after discharge: GARRETT ([place]) [phone] SOY ([place]) [phone] * Verbal permission to speak to the caregivers and representatives has been obtained from the patient. Yes * Community resources currently utilized None * Additional services required to return to the preadmission environment? Yes * Can the patient safely return to the preadmission environment? Yes * Has this patient been hospitalized within the prior 30 days at any hospital? No Last DP export: 06/11/18 7:46 a Patient Name: NOAH CASTILLO Page 19080 at 0859 All edits/amendments must be made on the electronic document DICTATION DATE: 06/11/18858 FIELD SUPPORT REP: LAKESHA 06/11/18858 RPT#: [id number] DC DATE: STATUS: ADM IN [facility] [address] [place] [address] END OF REPORT
--- NOTE | ~2018-06-09 | MORECARE ---
CASE MANAGEMENT DISCHARGE SUMMARY PATIENT: NOAH CASTILLO UNIT: [id number] ADM DATE: 06/09/18 AGE: 82 : 35 SEX: F ROOM/BED: D.2805 AUTHOR: TRISTON,DOC PHYSICIAN: REFERRING PHYSICIAN: RAH FULTON MD DATE OF SERVICE: 06/18/18 Discharge Plan Patient Name: NOAH CASTILLO Facility: [facility]:[place] : 1935 Planned Disposition: Inpatient Rehab Anticipated Discharge Date: 06/19/18 Discharge Date: Expected LOS: 10 Initial Reviewer: [id number] Initial Review Date: 06/10/2018 Generated: 06/18/18 9:52 am Comments DCP- Discharge Planning Updated by [id number]: Yair Kelly on 06/17/18 11:[address] Patient Name: NOAH CASTILLO Encounter No: [id number] : 1935 Primary Insurance: [facility] MEDICARE SOLUTIONS Anticipated DC Date: 06-16-2018 Planned Disposition: Inpatient Rehab External Planned Provider: [facility] INPATIENT REH[facility] DCP follow-up note: CM RECEIVED MESSAGE FROM [facility], THEY DO NOT HAVE INPATIENT REHAB AT THE FACILITY, THEY HAVE INPATIENT DRUG AND ALCOHOL TREATMENT. CM CALLED [facility], SPOKE TO BILL IN CASE MANAGEMENT WHO INFORMED CM THAT [facility] IS IN NETWORK IN [place] WITH PT'S INSURANCE. CM SPOKE TO PT IN ROOM, NOTIFIED OF ABOVE, PT WOULD LIKE CM TO CALL [facility] TO INQUIRE ABOUT INPATIENT REHAB THERE; PT WILL GO TO [place] IF THEY WILL ACCEPT. PT DOES NOT WANT REHAB REFERRAL SENT TO [facility] AT THIS TIME. CM CALLED [facility], , SPOKE TO YANET CADE WHO INFORMED THEY HAVE INPATIENT REHAB AND WILL CONSIDER PT FOR ADMISSION. CM FAXED REFERRAL TO [facility], . CM NOTIFIED RENAL NURSE BRETT AND PT. CM WAITING ADMISSION DETERMINATION FROM [facility], AND INSURANCE AUTHORIZATION FOR INPATIENT REHAB SERVICES. YAIR EDIE, CASE MANAGEMENT DCP- Discharge Planning Updated by [id number]: Yair Kelly on 06/16/18 12:[address] Patient Name: NOAH CASTILLO Encounter No: [id number] : 1935 Primary Insurance: [facility] MEDICARE SOLUTIONS Anticipated DC Date: 06-16-2018 Planned Disposition: Inpatient Rehab External Planned Provider: [facility] INPATIENT REH[facility] DCP follow-up note: CM SPOKE TO PT AND DAUGHTER IN ROOM REGARDING INPATIENT REHAB PRESCEENING ORDER. NOAH CASTILLO provided verbal consent to discuss current and ongoing needs with/in the presence of: DAUGHTER JAVIER HAJI ([phone]). CM DISCUSSED AVAILABILITY OF INPATIENT REHAB, ALF REHAB PROVIDERS WELL DISCUSSED PT HAVING MANAGED MEDICARE THAT PROVIDERS MAY OR MAY NOT BE IN NETWORK AND THAT INSURANCE MAY OR MAY NOT PAY FOR REQUESTED INPATIENT REHAB SERVICES. PT AND DAUGHTER REPORT THAT PT'S FAMILY IS LOCATED IN [place], PT DOES NOT WANT TO CONSIDER GOING TO A ALF FACILITY AND WANTS REHAB AT THE [facility] IN [place]. PT'S SPOUSE, WHEN ALIVE, WAS TREATED AT THE REHAB AND PT WORKED AT THE [facility] IN THE PAST. IMPORTANT MESSAGE FROM MEDICARE PROVIDED AND EXPLAINED. CM CALLED [facility], , SPOKE TO RAVI WHO REPORTS THEY WILL CONSIDER PT FOR REHAB ADMISSION AND THEY ARE NOT IN NETWORK WITH PT'S INSURANCE COMPANY. RAVI WILL CALL PT AND DISCUSS ADMISSION AND IF ACCEPTED, ANY COPAYS FOR OUT OF NETWORK SERVICES. CM FAXED REFERRAL TO [facility] IN[facility], . PATIENT WILL REQUIRE OCCUPATIONAL THERAPY EVALUATION FAXED TO [facility] INPATIENT REH[facility], WHEN COMPLETED. CM WAITING ADMISSION DETERMINATION FROM [facility] INPATENT REH[facility]. Yair Kelly CASE MANAGEMENT DCP- Discharge Planning Updated by [id number]: Alison Vann on 06/15/18 7:[address] LATE ENTRY 1400 CM RECEIVED AN ORDER FOR ACUTE REHAB FOR PATIENT. PATIENT LIVES IN THE [place], [place]. PHYSICAL THERAPY EVAL ORDERED AND COMPLETED. WILL NEED OT EVAL. . ORDER OBTAINED. PATIENT HAS [facility] MEDICARE SOLUTIONS, A MANAGED MEDICARE PROVIDER. WILL NEED TO CONTACT INSURER FOR PREAUTH AND TO DETERMINE IN-NETWORK PROVIDERS. CM WILL NEED TO FOLLOW UP WITH THE PROVIDER IN THE AM. CM TO FOLLOW TO ASSIST WITH DISCHARGE PLANNING. DCP- Discharge Planning Updated by [id number]: Jennifer Adames on 06/11/18 7:[address] Patient Name: NOAH CASTILLO Admission Status: ER Accout number: [id number] Admission Date: 06-09-2018 : 1935 Admission Diagnosis: Attending: RAH FULTON Current LOS: 2 Anticipated DC Date: 06-13-2018 Planned Disposition: Home Primary Insurance: [facility] MEDICARE SOLUTIONS Discharge Planning Comments: CM MET WITH PATIENT REGARDING D/C NEEDS AND PLANS. PATIENT STATED SHE LIVES WITH FAMILY AND ONE OF THEM COULD DRIVE HER HOME AT DISCHARGE. PATIENT STATED SHE HAS A RAMP TO ENTER HOME AND NO STAIRS INSIDE. PATIENT STATED SHE IS INDEPENDENT WITH HER CARE AND HAS A CANE AT HOME. PATIENT STATED HER PCP IS DR. BARNHART ([place]) AND USES [facility] IN [place]. PATIENT WAS OFFERED HOME HEALTH AND SHE STATED DR. LÓPEZ HAD ALREADY SET UP HH AND SHE CAME TO HOSPITAL THE DAY THEY WERE TO COME OUT. PATEINT STATED SHE WILL CALL DR. BARNHART ONCE HOME. CM CALLED DR. GRANT OFFICE AND THEY STATED [facility] WAS OUT OF NETWORK AND PAPERWORK HAD BEEN FAXED TO [facility] [place] TO SEE PATIENT. CM WILL CONTINUE TO FOLLOW PATIENT WITH D/C NEEDS AND PLANS. PCP DR. BARNHART ([place])[phone] [facility] IN [place] ([place]) [phone] [place] ([place]) [phone] Technology Manager: Jennifer Adames DCPIA - Discharge Planning Initial Assessment Updated by [id number]: Jennifer Adames on 06/11/18 8:43 am * Is the patient Alert and Oriented? Yes * How many steps to enter\exit or inside your home? RAMP * PCP DR. CALLI LÓPEZ * Pharmacy [facility] IN [place] * Preadmission Environment Home with Family * ADLs Independent * Equipment Cane * List name and contact numbers for known caregivers / representatives who currently or will assist patient after discharge: GARRETT ([place]) [phone] SOY ([place]) [phone] * Verbal permission to speak to the caregivers and representatives has been obtained from the patient. Yes * Community resources currently utilized None * Additional services required to return to the preadmission environment? Yes * Can the patient safely return to the preadmission environment? Yes * Has this patient been hospitalized within the prior 30 days at any hospital? No Coverage Notice Reviewer: [id number] Melissa Kelly Notice Issued Date-Time: 06/16/2018 12:20 Notice Type: IM Discharge Notice Notice Delivered To: Patient Relationship to Patient: Poacher Operator Name: Delivery Method: HAND - Hand Delivered Aleah Days: Prior Verbal Notification: Recipient Understood Notice: Yes Recipient Signature: Yes Med Rec Note Co-signed by Attending: Coverage Notice Comment: Last DP export: 06/17/18 11:36 Patient Name: NOAH CASTILLO Page 27046 at 0852 All edits/amendments must be made on the electronic document DICTATION DATE: 06/18/18850 WEATHERIZATION ADMINISTRATOR: LAKESHA 06/18/18850 RPT#: [id number] DC DATE: STATUS: ADM IN [facility] [address] [place] [address] END OF REPORT
--- NOTE | ~2018-06-09 | MORECARE ---
CASE MANAGEMENT DISCHARGE SUMMARY PATIENT: NOAH CASTILLO UNIT: [id number] ADM DATE: 06/09/18 AGE: 82 : 35 SEX: F ROOM/BED: D.7223 AUTHOR: TRISTON,DOC PHYSICIAN: REFERRING PHYSICIAN: RAH FULTON MD DATE OF SERVICE: 06/17/18 Discharge Plan Patient Name: NOAH CASTILLO Facility: [facility]:[place] : 1935 Planned Disposition: Inpatient Rehab Anticipated Discharge Date: 06/18/18 Discharge Date: Expected LOS: 9 Initial Reviewer: [id number] Initial Review Date: 06/10/2018 Generated: 06/17/18 1:36 pm Comments DCP- Discharge Planning Updated by [id number]: Yair Kelly on 06/17/18 11:[address] Patient Name: NOAH CASTILLO Encounter No: [id number] : 1935 Primary Insurance: [facility] MEDICARE SOLUTIONS Anticipated DC Date: 06-16-2018 Planned Disposition: Inpatient Rehab External Planned Provider: [facility] INPATIENT REHAB DCP follow-up note: CM RECEIVED MESSAGE FROM CHRIS OF [facility], THEY DO NOT HAVE INPATIENT REHAB AT THE FACILITY, THEY HAVE INPATIENT DRUG AND ALCOHOL TREATMENT. CM CALLED [facility], SPOKE TO BILL IN CASE MANAGEMENT WHO INFORMED CM THAT [facility] IS IN NETWORK IN [place] WITH PT'S INSURANCE. CM SPOKE TO PT IN ROOM, NOTIFIED OF ABOVE, PT WOULD LIKE CM TO CALL HOSPITAL IN [facility] TO INQUIRE ABOUT INPATIENT REHAB THERE; PT WILL GO TO [place] IF THEY WILL ACCEPT. PT DOES NOT WANT REHAB REFERRAL SENT TO [facility] AT THIS TIME. CM CALLED [facility], , SPOKE TO YANET CADE WHO INFORMED THEY HAVE INPATIENT REHAB AND WILL CONSIDER PT FOR ADMISSION. CM FAXED REFERRAL TO [facility], . CM NOTIFIED RENAL NURSE BRETT AND PT. CM WAITING ADMISSION DETERMINATION FROM [facility], AND INSURANCE AUTHORIZATION FOR INPATIENT REHAB SERVICES. YAIR EDIE, CASE MANAGEMENT DCP- Discharge Planning Updated by [id number]: Yair Kelly on 06/16/18 12:[address] Patient Name: NOAH CASTILLO Encounter No: [id number] : 1935 Primary Insurance: [facility] MEDICARE SOLUTIONS Anticipated DC Date: 06-16-2018 Planned Disposition: Inpatient Rehab External Planned Provider: [facility] INPATIENT REH[facility] DCP follow-up note: CM SPOKE TO PT AND DAUGHTER IN ROOM REGARDING INPATIENT REHAB PRESCEENING ORDER. NOAH CASTILLO provided verbal consent to discuss current and ongoing needs with/in the presence of: DAUGHTER JAVIER HAJI ([phone]). CM DISCUSSED AVAILABILITY OF INPATIENT REHAB, [facility] PROVIDERS WELL DISCUSSED PT HAVING MANAGED MEDICARE THAT PROVIDERS MAY OR MAY NOT BE IN NETWORK AND THAT INSURANCE MAY OR MAY NOT PAY FOR REQUESTED INPATIENT REHAB SERVICES. PT AND DAUGHTER REPORT THAT PT'S FAMILY IS LOCATED IN [place], PT DOES NOT WANT TO CONSIDER GOING TO A [facility] FACILITY AND WANTS REHAB AT THE [facility] IN [place]. PT'S SPOUSE, WHEN ALIVE, WAS TREATED AT THE REHAB AND PT WORKED AT THE [facility] IN THE PAST. IMPORTANT MESSAGE FROM MEDICARE PROVIDED AND EXPLAINED. CM CALLED [facility], , SPOKE TO RAVI WHO REPORTS THEY WILL CONSIDER PT FOR REHAB ADMISSION AND THEY ARE NOT IN NETWORK WITH PT'S INSURANCE COMPANY. RAVI WILL CALL PT AND DISCUSS ADMISSION AND IF ACCEPTED, ANY COPAYS FOR OUT OF NETWORK SERVICES. CM FAXED REFERRAL TO [facility] IN[facility], . PATIENT WILL REQUIRE OCCUPATIONAL THERAPY EVALUATION FAXED TO [facility], WHEN COMPLETED. CM WAITING ADMISSION DETERMINATION FROM [facility] INPATENT REHAB. Yair Kelly CASE MANAGEMENT DCP- Discharge Planning Updated by [id number]: Alison Vann on 06/15/18 7:[address] LATE ENTRY 1400 CM RECEIVED AN ORDER FOR ACUTE REHAB FOR PATIENT. PATIENT LIVES IN THE [place], [place]. PHYSICAL THERAPY EVAL ORDERED AND COMPLETED. WILL NEED OT EVAL. . ORDER OBTAINED. PATIENT HAS [facility] MEDICARE SOLUTIONS, A MANAGED MEDICARE PROVIDER. WILL NEED TO CONTACT INSURER FOR PREAUTH AND TO DETERMINE IN-NETWORK PROVIDERS. CM WILL NEED TO FOLLOW UP WITH THE PROVIDER IN THE AM. CM TO FOLLOW TO ASSIST WITH DISCHARGE PLANNING. DCP- Discharge Planning Updated by [id number]: Jennifer Adames on 06/11/18 7:[address] Patient Name: NOAH CASTILLO Admission Status: ER Accout number: [id number] Admission Date: 06-09-2018 : 1935 Admission Diagnosis: Attending: RAH FULTON Current LOS: 2 Anticipated DC Date: 06-13-2018 Planned Disposition: Home Primary Insurance: [facility] MEDICARE SOLUTIONS Discharge Planning Comments: CM MET WITH PATIENT REGARDING D/C NEEDS AND PLANS. PATIENT STATED SHE LIVES WITH FAMILY AND ONE OF THEM COULD DRIVE HER HOME AT DISCHARGE. PATIENT STATED SHE HAS A RAMP TO ENTER HOME AND NO STAIRS INSIDE. PATIENT STATED SHE IS INDEPENDENT WITH HER CARE AND HAS A CANE AT HOME. PATIENT STATED HER PCP IS DR. BARNHART ([place]) AND USES [facility] IN [place]. PATIENT WAS OFFERED HOME HEALTH AND SHE STATED DR. LÓPEZ HAD ALREADY SET UP HH AND SHE CAME TO HOSPITAL THE DAY THEY WERE TO COME OUT. PATEINT STATED SHE WILL CALL DR. BARNHART ONCE HOME. CM CALLED DR. GRANT OFFICE AND THEY STATED [facility] WAS OUT OF NETWORK AND PAPERWORK HAD BEEN FAXED TO [facility] IN [place] TO SEE PATIENT. CM WILL CONTINUE TO FOLLOW PATIENT WITH D/C NEEDS AND PLANS. PCP DR. BARNHART ([place])[phone] [facility] IN [place]AR[place] ([place]) [phone] SO[place] ([place]) [phone] Corporate Staff Accountant: Jennifer Adames DCPIA - Discharge Planning Initial Assessment Updated by [id number]: Jennifer Adames on 06/11/18 8:43 am * Is the patient Alert and Oriented? Yes * How many steps to enter\exit or inside your home? RAMP * PCP DR. CALLI LÓPEZ * Pharmacy [facility] IN [place] * Preadmission Environment Home with Family * ADLs Independent * Equipment Cane * List name and contact numbers for known caregivers / representatives who currently or will assist patient after discharge: GARRETT ([place]) [phone] SOY ([place]) [phone] * Verbal permission to speak to the caregivers and representatives has been obtained from the patient. Yes * Community resources currently utilized None * Additional services required to return to the preadmission environment? Yes * Can the patient safely return to the preadmission environment? Yes * Has this patient been hospitalized within the prior 30 days at any hospital? No Coverage Notice Reviewer: [id number] Melissa Kelly Notice Issued Date-Time: 06/16/2018 12:20 Notice Type: IM Discharge Notice Notice Delivered To: Patient Relationship to Patient: Cartography/Mapping Technician Name: Delivery Method: HAND - Hand Delivered Aleah Days: Prior Verbal Notification: Recipient Understood Notice: Yes Recipient Signature: Yes Med Rec Note Co-signed by Attending: Coverage Notice Comment: Last DP export: 06/17/18 11:21 Patient Name: NOAH CASTILLO Page 64519 at 1236 All edits/amendments must be made on the electronic document DICTATION DATE: 06/17/18 1236 DRUG WORKER: LAKESHA 06/17/18 1236 RPT#: [id number] DC DATE: STATUS: ADM IN [facility] [address] [place] [address] END OF REPORT
--- NOTE | ~2018-06-09 | MORECARE ---
CASE MANAGEMENT DISCHARGE SUMMARY PATIENT: NOAH CASTILLO UNIT: [id number] ADM DATE: 06/09/18 AGE: 82 : 35 SEX: F ROOM/BED: D.0107 AUTHOR: ASUNCION GOLDSTEIN PHYSICIAN: REFERRING PHYSICIAN: RAH FULTON MD DATE OF SERVICE: 06/16/18 Discharge Plan Patient Name: NOAH CASTILLO Facility: [facility]:[place] : 1935 Planned Disposition: Inpatient Rehab Anticipated Discharge Date: 06/16/18 Discharge Date: Expected LOS: 7 Initial Reviewer: [id number] Initial Review Date: 06/10/2018 Generated: 06/16/18 2:40 pm Comments DCP- Discharge Planning Updated by [id number]: Alison Vann on 06/15/18 7:[address] LATE ENTRY 1400 CM RECEIVED AN ORDER FOR ACUTE REHAB FOR PATIENT. PATIENT LIVES IN THE [place], [place]. PHYSICAL THERAPY EVAL ORDERED AND COMPLETED. WILL NEED OT EVAL. . ORDER OBTAINED. PATIENT HAS [facility] MEDICARE SOLUTIONS, A MANAGED MEDICARE PROVIDER. WILL NEED TO CONTACT INSURER FOR PREAUTH AND TO DETERMINE IN-NETWORK PROVIDERS. CM WILL NEED TO FOLLOW UP WITH THE PROVIDER IN THE AM. CM TO FOLLOW TO ASSIST WITH DISCHARGE PLANNING. DCP- Discharge Planning Updated by [id number]: Jennifer Adames on 06/11/18 7:[address] Patient Name: NOAH CASTILLO Admission Status: ER Accout number: [id number] Admission Date: 06-09-2018 : 1935 Admission Diagnosis: Attending: RAH FULTON Current LOS: 2 Anticipated DC Date: 06-13-2018 Planned Disposition: Home Primary Insurance: [facility] MEDICARE SOLUTIONS Discharge Planning Comments: CM MET WITH PATIENT REGARDING D/C NEEDS AND PLANS. PATIENT STATED SHE LIVES WITH FAMILY AND ONE OF THEM COULD DRIVE HER HOME AT DISCHARGE. PATIENT STATED SHE HAS A RAMP TO ENTER HOME AND NO STAIRS INSIDE. PATIENT STATED SHE IS INDEPENDENT WITH HER CARE AND HAS A CANE AT HOME. PATIENT STATED HER PCP IS DR. BARNHART ([place]) AND USES [facility] IN [place]. PATIENT WAS OFFERED HOME HEALTH AND SHE STATED DR. LÓPEZ HAD ALREADY SET UP HH AND SHE CAME TO HOSPITAL THE DAY THEY WERE TO COME OUT. PATEINT STATED SHE WILL CALL DR. BARNHART ONCE HOME. CM CALLED DR. GRANT OFFICE AND THEY STATED [facility] WAS OUT OF NETWORK AND PAPERWORK HAD BEEN FAXED TO [facility] [place] TO SEE PATIENT. CM WILL CONTINUE TO FOLLOW PATIENT WITH D/C NEEDS AND PLANS. PCP DR. BARNHART ([place])[phone] [facility] [place]AR[place]TT ([place]) [phone] SO[place] ([place]) [phone] Disability Specialist: Jennifer Adames DCPIA - Discharge Planning Initial Assessment Updated by [id number]: Jennifer Adames on 06/11/18 8:43 am * Is the patient Alert and Oriented? Yes * How many steps to enter\exit or inside your home? RAMP * PCP DR. CALLI LÓPEZ * Pharmacy [facility] IN [place] * Preadmission Environment Home with Family * ADLs Independent * Equipment Cane * List name and contact numbers for known caregivers / representatives who currently or will assist patient after discharge: GARRETT ([place]) [phone] SOY ([place]) [phone] * Verbal permission to speak to the caregivers and representatives has been obtained from the patient. Yes * Community resources currently utilized None * Additional services required to return to the preadmission environment? Yes * Can the patient safely return to the preadmission environment? Yes * Has this patient been hospitalized within the prior 30 days at any hospital? No Coverage Notice Reviewer: [id number] Melissa Kelly Notice Issued Date-Time: 06/16/2018 12:20 Notice Type: IM Discharge Notice Notice Delivered To: Patient Relationship to Patient: Basin Cleaner Name: Delivery Method: HAND - Hand Delivered Aleah Days: Prior Verbal Notification: Recipient Understood Notice: Yes Recipient Signature: Yes Med Rec Note Co-signed by Attending: Coverage Notice Comment: Last DP export: 06/16/18 11:38 Patient Name: NOAH CASTILLO Page 23913 at 1341 All edits/amendments must be made on the electronic document DICTATION DATE: 06/16/18 1340 PHYSICAL ANTHROPOLOGIST: LAKESHA 06/16/18 1340 RPT#: [id number] MA DATE: STATUS: ADM IN [facility] [address] [facility] [place] [address] END OF REPORT
--- NOTE | ~2018-06-09 | MORECARE ---
CASE MANAGEMENT DISCHARGE SUMMARY PATIENT: NOAH CASTILLO UNIT: [id number] ADM DATE: 06/09/18 AGE: 82 : 35 SEX: F ROOM/BED: D.6493 AUTHOR: TRISTONDOC PHYSICIAN: REFERRING PHYSICIAN: RAH FULTON MD DATE OF SERVICE: 06/16/18 Discharge Plan Patient Name: NOAH CASTILLO Facility: [facility]:[place] : 1935 Planned Disposition: Inpatient Rehab Anticipated Discharge Date: 06/16/18 Discharge Date: Expected LOS: 7 Initial Reviewer: [id number] Initial Review Date: 06/10/2018 Generated: 06/16/18 3:02 pm Comments DCP- Discharge Planning Updated by [id number]: Michael Kelly on 06/16/18 12:[address] Patient Name: NOAH CASTILLO Encounter No: [id number] : 1935 Primary Insurance: [facility] MEDICARE SOLUTIONS Anticipated DC Date: 06-16-2018 Planned Disposition: Inpatient Rehab External Planned Provider: [facility] INPATIENT REH[facility] DCP follow-up note: CM SPOKE TO PT AND DAUGHTER IN ROOM REGARDING INPATIENT REHAB PRESCEENING ORDER. NOAH CASTILLO provided verbal consent to discuss current and ongoing needs with/in the presence of: DAUGHTER JAVIER HAJI ([phone]). CM DISCUSSED AVAILABILITY OF INPATIENT REHAB, [facility] PROVIDERS WELL DISCUSSED PT HAVING MANAGED MEDICARE THAT PROVIDERS MAY OR MAY NOT BE IN NETWORK AND THAT INSURANCE MAY OR MAY NOT PAY FOR REQUESTED INPATIENT REHAB SERVICES. PT AND DAUGHTER REPORT THAT PT'S FAMILY IS LOCATED IN [place], PT DOES NOT WANT TO CONSIDER GOING TO A [facility] FACILITY AND WANTS REHAB AT THE [facility] IN [place]. PT'S SPOUSE, WHEN ALIVE, WAS TREATED AT THE REHAB AND PT WORKED AT THE MEDICAL CENTER IN THE PAST. IMPORTANT MESSAGE FROM MEDICARE PROVIDED AND EXPLAINED. CM CALLED [facility], , SPOKE TO RAVI WHO REPORTS THEY WILL CONSIDER PT FOR REHAB ADMISSION AND THEY ARE NOT IN NETWORK WITH PT'S INSURANCE COMPANY. RAVI WILL CALL PT AND DISCUSS ADMISSION AND IF ACCEPTED, ANY COPAYS FOR OUT OF NETWORK SERVICES. CM FAXED REFERRAL TO [facility] IN[facility], . PATIENT WILL REQUIRE OCCUPATIONAL THERAPY EVALUATION FAXED TO [facility] IN[facility], WHEN COMPLETED. CM WAITING ADMISSION DETERMINATION FROM [facility] INPATENT RE[facility]. Michael Kelly, CASE MANAGEMENT DCP- Discharge Planning Updated by [id number]: Alison Vann on 06/15/18 7:[address] LATE ENTRY 1400 CM RECEIVED AN ORDER FOR ACUTE REHAB FOR PATIENT. PATIENT LIVES IN THE [place], [place]. PHYSICAL THERAPY EVAL ORDERED AND COMPLETED. WILL NEED OT EVAL. . ORDER OBTAINED. PATIENT HAS [facility] MEDICARE SOLUTIONS, A MANAGED MEDICARE PROVIDER. WILL NEED TO CONTACT INSURER FOR PREAUTH AND TO DETERMINE IN-NETWORK PROVIDERS. CM WILL NEED TO FOLLOW UP WITH THE PROVIDER IN THE AM. CM TO FOLLOW TO ASSIST WITH DISCHARGE PLANNING. DCP- Discharge Planning Updated by [id number]: Jennifer Adames on 06/11/18 7:[address] Patient Name: NOAH CASTILLO Admission Status: ER Accout number: [id number] Admission Date: 06-09-2018 : 1935 Admission Diagnosis: Attending: RAH FULTON Current LOS: 2 Anticipated DC Date: 06-13-2018 Planned Disposition: Home Primary Insurance: [facility] MEDICARE SOLUTIONS Discharge Planning Comments: CM MET WITH PATIENT REGARDING D/C NEEDS AND PLANS. PATIENT STATED SHE LIVES WITH FAMILY AND ONE OF THEM COULD DRIVE HER HOME AT DISCHARGE. PATIENT STATED SHE HAS A RAMP TO ENTER HOME AND NO STAIRS INSIDE. PATIENT STATED SHE IS INDEPENDENT WITH HER CARE AND HAS A CANE AT HOME. PATIENT STATED HER PCP IS DR. BARNHART ([place]) AND USES [facility] IN [place]. PATIENT WAS OFFERED HOME HEALTH AND SHE STATED DR. LÓPEZ HAD ALREADY SET UP HH AND SHE CAME TO HOSPITAL THE DAY THEY WERE TO COME OUT. PATEINT STATED SHE WILL CALL DR. BARNHART ONCE HOME. CM CALLED DR. GRANT OFFICE AND THEY STATED [facility] WAS OUT OF NETWORK AND PAPERWORK HAD BEEN FAXED TO [facility] IN [place] TO SEE PATIENT. CM WILL CONTINUE TO FOLLOW PATIENT WITH D/C NEEDS AND PLANS. PCP DR. BARNHART ([place])[phone] [facility] IN [place]AR[place]TT ([place]) [phone] SO[place] ([place]) [phone] Condenser Tube Tender: Jennifer Adames DCPIA - Discharge Planning Initial Assessment Updated by [id number]: Jennifer Adames on 06/11/18 8:43 am * Is the patient Alert and Oriented? Yes * How many steps to enter\exit or inside your home? RAMP * PCP DR. CALLI LÓPEZ * Pharmacy [facility] IN [place] * Preadmission Environment Home with Family * ADLs Independent * Equipment Cane * List name and contact numbers for known caregivers / representatives who currently or will assist patient after discharge: GARRETT ([place]) [phone] SOY ([place]) [phone] * Verbal permission to speak to the caregivers and representatives has been obtained from the patient. Yes * Community resources currently utilized None * Additional services required to return to the preadmission environment? Yes * Can the patient safely return to the preadmission environment? Yes * Has this patient been hospitalized within the prior 30 days at any hospital? No Coverage Notice Reviewer: [id number] Melissa Kelly Notice Issued Date-Time: 06/16/2018 12:20 Notice Type: IM Discharge Notice Notice Delivered To: Patient Relationship to Patient: Cooler Worker Name: Delivery Method: HAND - Hand Delivered Aleah Days: Prior Verbal Notification: Recipient Understood Notice: Yes Recipient Signature: Yes Med Rec Note Co-signed by Attending: Coverage Notice Comment: Last DP export: 06/16/18 12:41 Patient Name: NOAH CASTILLO Page 46792 at 1402 All edits/amendments must be made on the electronic document DICTATION DATE: 06/16/18 1402 BUTCHER FISH: LAKESHA 06/16/18 1402 RPT#: [id number] [place] DATE: STATUS: ADM IN [facility] [address] [place] [address] END OF REPORT
--- NOTE | ~2018-06-09 | MORECARE ---
CASE MANAGEMENT DISCHARGE SUMMARY PATIENT: NOAH CASTILLO UNIT: [id number] ADM DATE: 06/09/18 AGE: 82 : 35 SEX: F ROOM/BED: D.8839 AUTHOR: TRISTON,DOC PHYSICIAN: REFERRING PHYSICIAN: RAH FULTON MD DATE OF SERVICE: 06/18/18 Discharge Plan Patient Name: NOAH CASTILLO Facility: [facility]:[place] : 1935 Planned Disposition: Inpatient Rehab Anticipated Discharge Date: 06/19/18 Discharge Date: Expected LOS: 10 Initial Reviewer: [id number] Initial Review Date: 06/10/2018 Generated: 06/18/18 9:59 am Comments DCP- Discharge Planning Updated by [id number]: Yair Kelly on 06/17/18 11:[address] Patient Name: NOAH CASTILLO Encounter No: [id number] : 1935 Primary Insurance: [facility] MEDICARE SOLUTIONS Anticipated DC Date: 06-16-2018 Planned Disposition: Inpatient Rehab External Planned Provider: [facility] DCP follow-up note: CM RECEIVED MESSAGE FROM CHRIS OF [facility], THEY DO NOT HAVE INPATIENT REHAB AT THE FACILITY, THEY HAVE INPATIENT DRUG AND ALCOHOL TREATMENT. CM CALLED [facility], SPOKE TO BILL IN CASE MANAGEMENT WHO INFORMED CM THAT [facility] IS IN NETWORK IN [place] WITH PT'S INSURANCE. CM SPOKE TO PT IN ROOM, NOTIFIED OF ABOVE, PT WOULD LIKE CM TO CALL HOSPITAL IN [facility] [place] TO INQUIRE ABOUT INPATIENT REHAB THERE; PT WILL GO TO [place] IF THEY WILL ACCEPT. PT DOES NOT WANT REHAB REFERRAL SENT TO [facility] AT THIS TIME. CM CALLED [facility], , SPOKE TO YANET CADE WHO INFORMED THEY HAVE INPATIENT REHAB AND WILL CONSIDER PT FOR ADMISSION. CM FAXED REFERRAL TO [facility], . CM NOTIFIED RENAL NURSE BRETT AND PT. CM WAITING ADMISSION DETERMINATION FROM [facility], AND INSURANCE AUTHORIZATION FOR INPATIENT REHAB SERVICES. YAIR EDIE, CASE MANAGEMENT DCP- Discharge Planning Updated by [id number]: Yair Kelly on 06/16/18 12:[address] Patient Name: NOAH CASTILLO Encounter No: [id number] : 1935 Primary Insurance: [facility] MEDICARE SOLUTIONS Anticipated DC Date: 06-16-2018 Planned Disposition: Inpatient Rehab External Planned Provider: [facility] INPATIENT REH[facility] DCP follow-up note: CM SPOKE TO PT AND DAUGHTER IN ROOM REGARDING INPATIENT REHAB PRESCEENING ORDER. NOAH CASTILLO provided verbal consent to discuss current and ongoing needs with/in the presence of: DAUGHTER JAVIER HAJI ([phone]). CM DISCUSSED AVAILABILITY OF INPATIENT REHAB, CUSTODIAL REHAB PROVIDERS WELL DISCUSSED PT HAVING MANAGED MEDICARE THAT PROVIDERS MAY OR MAY NOT BE IN NETWORK AND THAT INSURANCE MAY OR MAY NOT PAY FOR REQUESTED INPATIENT REHAB SERVICES. PT AND DAUGHTER REPORT THAT PT'S FAMILY IS LOCATED IN [place], PT DOES NOT WANT TO CONSIDER GOING TO A CUSTODIAL FACILITY AND WANTS REHAB AT THE [facility] IN [place]. PT'S SPOUSE, WHEN ALIVE, WAS TREATED AT THE REHAB AND PT WORKED AT THE [facility] IN THE PAST. IMPORTANT MESSAGE FROM MEDICARE PROVIDED AND EXPLAINED. CM CALLED [facility], , SPOKE TO RAVI WHO REPORTS THEY WILL CONSIDER PT FOR REHAB ADMISSION AND THEY ARE NOT IN NETWORK WITH PT'S INSURANCE COMPANY. RAVI WILL CALL PT AND DISCUSS ADMISSION AND IF ACCEPTED, ANY COPAYS FOR OUT OF NETWORK SERVICES. CM FAXED REFERRAL TO [facility] INPATIENT REHAB, . PATIENT WILL REQUIRE OCCUPATIONAL THERAPY EVALUATION FAXED TO [facility] INPATIENT RE[facility], WHEN COMPLETED. CM WAITING ADMISSION DETERMINATION FROM [facility] INPATENT REHAB. Yair Kelly CASE MANAGEMENT DCP- Discharge Planning Updated by [id number]: Alison Vann on 06/15/18 7:[address] LATE ENTRY 1400 CM RECEIVED AN ORDER FOR ACUTE REHAB FOR PATIENT. PATIENT LIVES IN THE [place], [place]. PHYSICAL THERAPY EVAL ORDERED AND COMPLETED. WILL NEED OT EVAL. . ORDER OBTAINED. PATIENT HAS [facility] MEDICARE SOLUTIONS, A MANAGED MEDICARE PROVIDER. WILL NEED TO CONTACT INSURER FOR PREAUTH AND TO DETERMINE IN-NETWORK PROVIDERS. CM WILL NEED TO FOLLOW UP WITH THE PROVIDER IN THE AM. CM TO FOLLOW TO ASSIST WITH DISCHARGE PLANNING. DCP- Discharge Planning Updated by [email or web address]: Jeninfer Adames on 06/11/18 7:[address] Patient Name: NOAH CASTILLO Admission Status: ER Accout number: [id number] Admission Date: 06-09-2018 : 1935 Admission Diagnosis: Attending: RAH FULTON Current LOS: 2 Anticipated DC Date: 06-13-2018 Planned Disposition: Home Primary Insurance: [facility] MEDICARE SOLUTIONS Discharge Planning Comments: CM MET WITH PATIENT REGARDING D/C NEEDS AND PLANS. PATIENT STATED SHE LIVES WITH FAMILY AND ONE OF THEM COULD DRIVE HER HOME AT DISCHARGE. PATIENT STATED SHE HAS A RAMP TO ENTER HOME AND NO STAIRS INSIDE. PATIENT STATED SHE IS INDEPENDENT WITH HER CARE AND HAS A CANE AT HOME. PATIENT STATED HER PCP IS DR. BARNHART ([place]) AND USES [facility] IN [place]. PATIENT WAS OFFERED HOME HEALTH AND SHE STATED DR. LÓPEZ HAD ALREADY SET UP HH AND SHE CAME TO HOSPITAL THE DAY THEY WERE TO COME OUT. PATEINT STATED SHE WILL CALL DR. BARNHART ONCE HOME. CM CALLED DR. GRANT OFFICE AND THEY STATED [facility] WAS OUT OF NETWORK AND PAPERWORK HAD BEEN FAXED TO [facility] [place] TO SEE PATIENT. CM WILL CONTINUE TO FOLLOW PATIENT WITH D/C NEEDS AND PLANS. PCP DR. BARNHART ([place])[phone] [facility] IN [place] GAR[place] ([place]) [phone] SOY ([place]) [phone] Corporate Auditor: Jennifer Adames DCPIA - Discharge Planning Initial Assessment Updated by [email or web address]: Jennifer Adames on 06/11/18 8:43 am * Is the patient Alert and Oriented? Yes * How many steps to enter\exit or inside your home? RAMP * PCP DR. CALLI LÓPEZ * Pharmacy [facility] IN [place] * Preadmission Environment Home with Family * ADLs Independent * Equipment Cane * List name and contact numbers for known caregivers / representatives who currently or will assist patient after discharge: GARRETT ([place]) [phone] SOY ([place]) [phone] * Verbal permission to speak to the caregivers and representatives has been obtained from the patient. Yes * Community resources currently utilized None * Additional services required to return to the preadmission environment? Yes * Can the patient safely return to the preadmission environment? Yes * Has this patient been hospitalized within the prior 30 days at any hospital? No External Providers External Provider: [facility] Next Contact Date: 06/18/2018 Service Request Date: Service Type: Resolution: Reviewer: Comments: Coverage Notice Reviewer: [id number] Melissa Kelly Notice Issued Date-Time: 06/16/2018 12:20 Notice Type: IM Discharge Notice Notice Delivered To: Patient Relationship to Patient: [employer] [place] Operator Name: Delivery Method: HAND - Hand Delivered Aleah Days: Prior Verbal Notification: Recipient Understood Notice: Yes Recipient Signature: Yes Med Rec Note Co-signed by Attending: Coverage Notice Comment: Last DP export: 06/18/18 7:52 Patient Name: NOAH CASTILLO Page 38999 at 0859 All edits/amendments must be made on the electronic document DICTATION DATE: 06/18/18857 SENIOR SOFTWARE DEVELOPMENT ENGINEER: LAKESHA 06/18/18857 RPT#: [id number] DC DATE: STATUS: ADM IN [facility] [address] [place] [address] END OF REPORT
--- NOTE | ~2018-06-09 | MORECARE ---
CASE MANAGEMENT DISCHARGE SUMMARY PATIENT: NOAH CASTILLO UNIT: [id number] ADM DATE: 06/09/18 AGE: 82 : 35 SEX: F ROOM/BED: D.7080 AUTHOR: ASUNCION GOLDSTEIN PHYSICIAN: REFERRING PHYSICIAN: RAH FULTON MD DATE OF SERVICE: 06/15/18 Discharge Plan Patient Name: NOAH CASTILLO Facility: [facility]:[place] : 1935 Planned Disposition: Home Anticipated Discharge Date: 06/13/18 Discharge Date: Expected LOS: 4 Initial Reviewer: [id number] Initial Review Date: 06/10/2018 Generated: 06/15/18 9:25 pm Comments DCP- Discharge Planning Updated by [id number]: Alison Vann on 06/15/18 7:[address] LATE ENTRY 1400 CM RECEIVED AN ORDER FOR ACUTE REHAB FOR PATIENT. PATIENT LIVES IN THE [place], [place]. PHYSICAL THERAPY EVAL ORDERED AND COMPLETED. WILL NEED OT EVAL. . ORDER OBTAINED. PATIENT HAS [facility] MEDICARE SOLUTIONS, A MANAGED MEDICARE PROVIDER. WILL NEED TO CONTACT INSURER FOR PREAUTH AND TO DETERMINE IN-NETWORK PROVIDERS. CM WILL NEED TO FOLLOW UP WITH THE PROVIDER IN THE AM. CM TO FOLLOW TO ASSIST WITH DISCHARGE PLANNING. DCP- Discharge Planning Updated by [id number]: Jennifer Adames on 06/11/18 7:[address] Patient Name: NOAH CASTILLO Admission Status: ER Accout number: [id number] Admission Date: 06-09-2018 : 1935 Admission Diagnosis: Attending: RAH FULTON Current LOS: 2 Anticipated DC Date: 06-13-2018 Planned Disposition: Home Primary Insurance: [facility] MEDICARE SOLUTIONS Discharge Planning Comments: CM MET WITH PATIENT REGARDING D/C NEEDS AND PLANS. PATIENT STATED SHE LIVES WITH FAMILY AND ONE OF THEM COULD DRIVE HER HOME AT DISCHARGE. PATIENT STATED SHE HAS A RAMP TO ENTER HOME AND NO STAIRS INSIDE. PATIENT STATED SHE IS INDEPENDENT WITH HER CARE AND HAS A CANE AT HOME. PATIENT STATED HER PCP IS DR. BARNHART ([place]) AND USES [facility] IN [place]. PATIENT WAS OFFERED HOME HEALTH AND SHE STATED DR. LÓPEZ HAD ALREADY SET UP AND SHE CAME TO HOSPITAL THE DAY THEY WERE TO COME OUT. PATEINT STATED SHE WILL CALL DR. BARNHART ONCE HOME. CM CALLED DR. GRANT OFFICE AND THEY STATED [facility] WAS OUT OF NETWORK AND PAPERWORK HAD BEEN FAXED TO [facility] [place] TO SEE PATIENT. CM WILL CONTINUE TO FOLLOW PATIENT WITH D/C NEEDS AND PLANS. PCP DR. BARNHART ([place])[phone] [facility] [place] GARRETT ([place]) [phone] SOY ([place]) [phone] House Manager: Jennifer Adames DCPIA - Discharge Planning Initial Assessment Updated by [id number]: Jennifer Adames on 06/11/18 8:43 am * Is the patient Alert and Oriented? Yes * How many steps to enter\exit or inside your home? RAMP * PCP DR. CALLI LÓPEZ * Pharmacy [facility] IN [place] * Preadmission Environment Home with Family * ADLs Independent * Equipment Cane * List name and contact numbers for known caregivers / representatives who currently or will assist patient after discharge: GARRETT ([place]) [phone] SOY ([place]) [phone] * Verbal permission to speak to the caregivers and representatives has been obtained from the patient. Yes * Community resources currently utilized None * Additional services required to return to the preadmission environment? Yes * Can the patient safely return to the preadmission environment? Yes * Has this patient been hospitalized within the prior 30 days at any hospital? No Last DP export: 06/11/18 7:59 a Patient Name: NOAH CASTILLO Page [id number] at 202 All edits/amendments must be made on the electronic document DICTATION DATE: 06/15/182024 DISPLAY SCREEN FABRICATOR: LAKESHA 06/15/182024 RPT#: [id number] DC DATE: STATUS: ADM IN [facility] [address] [place] [address] END OF REPORT
--- NOTE | ~2018-06-09 | MORECARE ---
CASE MANAGEMENT DISCHARGE SUMMARY PATIENT: NOAH CASTILLO UNIT: [id number] ADM DATE: 06/09/18 AGE: 82 : 35 SEX: F ROOM/BED: D.4439 AUTHOR: TRISTONDOC PHYSICIAN: REFERRING PHYSICIAN: RAH FULTON MD DATE OF SERVICE: 06/18/18 Discharge Plan Patient Name: NOAH CASTILLO Facility: [facility]:[place] : 1935 Planned Disposition: Inpatient Rehab Anticipated Discharge Date: 06/19/18 Discharge Date: Expected LOS: 10 Initial Reviewer: [id number] Initial Review Date: 06/10/2018 Generated: 06/18/18 10:20 am Comments DCP- Discharge Planning Updated by [email or web address]: Yair Irizarry on 06/18/18 8:[address] Patient Name: NOAH CASTILLO Encounter No: [id number] : 1935 Primary Insurance: [facility] MEDICARE SOLUTIONS Anticipated DC Date: 06-19-2018 Planned Disposition: FDC FACILITY External Planned Provider: [facility] DCP follow-up note: CM RECEIVED CALL FROM PT'S DAUGHTER IN ROOM WHO INFORMED CM THAT THEY WANT TO CANCEL INPATIENT REHAB REFERRAL IN [place] AND SEND REFERRAL TO [facility] IN [place] FOR REHAB. CM MET WITH PT AND DAUGHTER IN ROOM, PT CONFIRMED THAT IS WHAT SHE WANTS TO DO, CHOICE LETTER FOR [facility] COMPLETED. CM CALLED [facility], , SPOKE TO YANET CADE, NOTIFIED TO CANCEL REFERRAL. CM CALLED [facility], , SPOKE TO ROSS WHO THINKS THEY ARE IN NETWORK WITH PT'S INSURANCE AND WILL SCREEN FOR REHAB ADMISSION. CM FAXED REFERRAL TO [facility] AT [phone]. CM WAITING ADMISSION DETERMINATION FROM [facility] AND INSURANCE AUTHORIZATION FOR REHAB SERVICES. YAIR IRIZARRY CASE MANAGEMENT DCP- Discharge Planning Updated by [id number]: Yair Irizarry on 06/17/18 11:[address] Patient Name: NOAH CASTILLO Encounter No: [id number] : 1935 Primary Insurance: [facility] MEDICARE SOLUTIONS Anticipated DC Date: 06-16-2018 Planned Disposition: Inpatient Rehab External Planned Provider: [facility] INPATIENT [facility] DCP follow-up note: CM RECEIVED MESSAGE FROM CHRIS OF [facility], THEY DO NOT HAVE INPATIENT REHAB AT THE FACILITY, THEY HAVE INPATIENT DRUG AND ALCOHOL TREATMENT. CM CALLED [facility], SPOKE TO BILL IN CASE MANAGEMENT WHO INFORMED CM THAT [facility] IN NETWORK IN [place] WITH PT'S INSURANCE. CM SPOKE TO PT IN ROOM, NOTIFIED OF ABOVE, PT WOULD LIKE CM TO CALL HOSPITAL IN [facility] TO INQUIRE ABOUT INPATIENT REHAB THERE; PT WILL GO TO [place] IF THEY WILL ACCEPT. PT DOES NOT WANT REHAB REFERRAL SENT TO [facility] AND REHAB AT THIS TIME. CM CALLED [facility], , SPOKE TO YANET CADE WHO INFORMED THEY HAVE INPATIENT REHAB AND WILL CONSIDER PT FOR ADMISSION. CM FAXED REFERRAL TO [facility], . CM NOTIFIED RENAL NURSE BRETT AND PT. CM WAITING ADMISSION DETERMINATION FROM [facility], AND INSURANCE AUTHORIZATION FOR INPATIENT REHAB SERVICES. YAIR IRIZARRY, CASE MANAGEMENT DCP- Discharge Planning Updated by [id number]: Yair Irizarry on 06/16/18 12:[address] Patient Name: NOAH CASTILLO Encounter No: [id number] : 1935 Primary Insurance: [facility] MEDICARE SOLUTIONS Anticipated DC Date: 06-16-2018 Planned Disposition: Inpatient Rehab External Planned Provider: [facility] INPATIENT REH[facility] DCP follow-up note: CM SPOKE TO PT AND DAUGHTER IN ROOM REGARDING INPATIENT REHAB PRESCEENING ORDER. NOAH CASTILLO provided verbal consent to discuss current and ongoing needs with/in the presence of: DAUGHTER JAVIER HAJI ([phone]). CM DISCUSSED AVAILABILITY OF INPATIENT REHAB, [facility]DC REHAB PROVIDERS WELL DISCUSSED PT HAVING MANAGED MEDICARE THAT PROVIDERS MAY OR MAY NOT BE IN NETWORK AND THAT INSURANCE MAY OR MAY NOT PAY FOR REQUESTED INPATIENT REHAB SERVICES. PT AND DAUGHTER REPORT THAT PT'S FAMILY IS LOCATED IN [place], PT DOES NOT WANT TO CONSIDER GOING TO A FDC FACILITY AND WANTS REHAB AT THE [facility] IN [place]. PT'S SPOUSE, WHEN ALIVE, WAS TREATED AT THE REHAB AND PT WORKED AT THE MEDICAL CENTER IN THE PAST. IMPORTANT MESSAGE FROM MEDICARE PROVIDED AND EXPLAINED. CM CALLED [facility], , SPOKE TO RAVI WHO REPORTS THEY WILL CONSIDER PT FOR REHAB ADMISSION AND THEY ARE NOT IN NETWORK WITH PT'S INSURANCE COMPANY. RAVI WILL CALL PT AND DISCUSS ADMISSION AND IF ACCEPTED, ANY COPAYS FOR OUT OF NETWORK SERVICES. CM FAXED REFERRAL TO [facility], . PATIENT WILL REQUIRE OCCUPATIONAL THERAPY EVALUATION FAXED TO [facility] IN[facility], WHEN COMPLETED. CM WAITING ADMISSION DETERMINATION FROM [facility] INPATENT REH[facility]. Yair Irizarry, CASE MANAGEMENT DCP- Discharge Planning Updated by [id number]: Alison Vann on 06/15/18 7:[address] LATE ENTRY 1400 CM RECEIVED AN ORDER FOR ACUTE REHAB FOR PATIENT. PATIENT LIVES IN THE [place], [place]. PHYSICAL THERAPY EVAL ORDERED AND COMPLETED. WILL NEED OT EVAL. . ORDER OBTAINED. PATIENT HAS [facility] MEDICARE SOLUTIONS, A MANAGED MEDICARE PROVIDER. WILL NEED TO CONTACT INSURER FOR PREAUTH AND TO DETERMINE IN-NETWORK PROVIDERS. CM WILL NEED TO FOLLOW UP WITH THE PROVIDER IN THE AM. CM TO FOLLOW TO ASSIST WITH DISCHARGE PLANNING. DCP- Discharge Planning Updated by [id number]: Jennifer Adames on 06/11/18 7:[address] Patient Name: NOAH CASTILLO Admission Status: ER Accout number: [id number] Admission Date: 06-09-2018 : 1935 Admission Diagnosis: Attending: RAH FULTON Current LOS: 2 Anticipated DC Date: 06-13-2018 Planned Disposition: Home Primary Insurance: [facility] MEDICARE SOLUTIONS Discharge Planning Comments: CM MET WITH PATIENT REGARDING D/C NEEDS AND PLANS. PATIENT STATED SHE LIVES WITH FAMILY AND ONE OF THEM COULD DRIVE HER HOME AT DISCHARGE. PATIENT STATED SHE HAS A RAMP TO ENTER HOME AND NO STAIRS INSIDE. PATIENT STATED SHE IS INDEPENDENT WITH HER CARE AND HAS A CANE AT HOME. PATIENT STATED HER PCP IS DR. BARNHART ([place]) AND USES [facility] IN [place]. PATIENT WAS OFFERED HOME HEALTH AND SHE STATED DR. LÓPEZ HAD ALREADY SET UP HH AND SHE CAME TO HOSPITAL THE DAY THEY WERE TO COME OUT. PATEINT STATED SHE WILL CALL DR. BARNHART ONCE HOME. CM CALLED DR. GRANT OFFICE AND THEY STATED [facility] WAS OUT OF NETWORK AND PAPERWORK HAD BEEN FAXED TO [facility] [place] TO SEE PATIENT. CM WILL CONTINUE TO FOLLOW PATIENT WITH D/C NEEDS AND PLANS. PCP DR. BARNHART ([place])[phone] [facility] [place] GAR[place]TT ([place]) [phone] SOY ([place]) [phone] Chemical Test Engineer: Jennifer Adames DCPIA - Discharge Planning Initial Assessment Updated by [id number]: Jennifer Adames on 06/11/18 8:43 am * Is the patient Alert and Oriented? Yes * How many steps to enter\exit or inside your home? RAMP * PCP DR. CALLI LÓPEZ * Pharmacy [facility] IN [place] * Preadmission Environment Home with Family * ADLs Independent * Equipment Cane * List name and contact numbers for known caregivers / representatives who currently or will assist patient after discharge: GARRETT ([place]) [phone] SOY ([place]) [phone] * Verbal permission to speak to the caregivers and representatives has been obtained from the patient. Yes * Community resources currently utilized None * Additional services required to return to the preadmission environment? Yes * Can the patient safely return to the preadmission environment? Yes * Has this patient been hospitalized within the prior 30 days at any hospital? No Coverage Notice Reviewer: [id number] Melissa Irizarry Notice Issued Date-Time: 06/16/2018 12:20 Notice Type: IM Discharge Notice Notice Delivered To: Patient Relationship to Patient: Process Owner Name: Delivery Method: HAND - Hand Delivered Aleah Days: Prior Verbal Notification: Recipient Understood Notice: Yes Recipient Signature: Yes Med Rec Note Co-signed by Attending: Coverage Notice Comment: Reviewer: [id number] Irizarry Notice Issued Date-Time: 06/18/2018 8:50 Notice Type: Patient Choice Letter Notice Delivered To: Patient Relationship to Patient: Process Owner Name: Delivery Method: HAND - Hand Delivered Aleah Days: Prior Verbal Notification: Recipient Understood Notice: Yes Recipient Signature: Yes Med Rec Note Co-signed by Attending: Coverage Notice Comment: [facility] Last DP export: 06/18/18 7:59 Patient Name: NOAH CASTILLO Page 64199 at 0920 All edits/amendments must be made on the electronic document DICTATION DATE: 06/18/18918 ASSEMBLER LAY UPS: LAKESHA 06/18/18918 RPT#: [id number] DC DATE: STATUS: ADM IN [facility] [address] [place] [address] END OF REPORT
[2018-06-10] MEDS ORDERED: OMEPRAZOLE20 M1 PO (00:23)
[2018-06-10] MEDS ORDERED: PLAVIX75 MG PO (00:23)
[2018-06-10] MEDS ORDERED: NORVASC10 MG PO (00:25)
[2018-06-10] MEDS ORDERED: LASIX40 MG PO (00:25)
[2018-06-10] MEDS ORDERED: REMERON30 MG PO (00:25)
[2018-06-10] MEDS ORDERED: ULTRAM50 MG PO (00:26)
[2018-06-10] MEDS ORDERED: LEVO-T50 MCG PO (00:26)
[2018-06-10] MEDS ORDERED: REMERON15 MG PO (00:26)
[2018-06-10] MEDS ORDERED: LOTENSIN HCT 21 EAC1 PO (00:27)
[2018-06-10] MEDS ORDERED: TOPROL XL50 MG PO (00:27)
[2018-06-10 01:13] VITALS: BP 109/62
[2018-06-10 04:03] VITALS: BMI 13.0
[2018-06-10 05:01] VITALS: BP 114/64
[2018-06-10 06:52] LABS: BASOPHILS 0 % (0-2); EOSINOPHILS 0.1 % (0-7); HEMOGLOBIN 8.3 g/dL (12-16); IMMATURE GRANULOCYTES 0.3 % (0-5); MCH 29.4 pg (26.0-34.0); MCHC 31.9 g/dL (31.0-37.0); MCV 92.2 fL (80.0-100.0); MEAN PLATELET VOLUME 11.3 fL (7.4-10.4); MONOCYTES 3.7 % (2-11); NEUTROPHILS 90.9 % (40-80); PLATELET COUNT 123 10x3/uL (130-400); RBC 2.82 10x6/uL (4.00-5.40); RDW 14.3 % (11.5-14.5)
[2018-06-10 07:09] LABS: ANION GAP 20.1 mmol/L (8-16); CALCIUM 8.5 mg/dL (8.5-10.1); CARBON DIOXIDE 21.8 mmol/L (21.0-32.0); POTASSIUM - SERUM 3.9 mmol/L (3.5-5.1)
[2018-06-10 08:33] VITALS: BP 123/66
[2018-06-10 11:45] VITALS: BP 105/62
[2018-06-10 12:56] VITALS: Ht 165.1 cm; Wt 35.4 kg
[2018-06-10 16:26] VITALS: BP 116/66
[2018-06-10 21:31] VITALS: BP 111/63
[2018-06-11 00:30] VITALS: BP 122/63
[2018-06-11 05:02] LABS: BASOPHILS 0 % (0-2); EOSINOPHILS 0.4 % (0-7); HEMATOCRIT 25.1 % (36.0-48.0); IMMATURE GRANULOCYTES 0.3 % (0-5); LYMPHOCYTES 6.4 % (15-50); MCH 29.7 pg (26.0-34.0); MCHC 31.9 g/dL (31.0-37.0); MCV 93.3 fL (80.0-100.0); MEAN PLATELET VOLUME 10.7 fL (7.4-10.4); MONOCYTES 3.7 % (2-11); NEUTROPHILS 89.2 % (40-80); PLATELET COUNT 134 10x3/uL (130-400); RBC 2.69 10x6/uL (4.00-5.40); RDW 14.5 % (11.5-14.5); WBC 7.2 10x3/uL (4.8-10.8)
[2018-06-11 05:25] LABS: ANION GAP 17.8 mmol/L (8-16); BILIRUBIN - DIRECT 0.1 mg/dL (0.00-0.30); BILIRUBIN - INDIRECT 0.2 mg/dL (0.00-1.00); BILIRUBIN - TOTAL 0.3 mg/dL (0.2-1.3); CARBON DIOXIDE 19.9 mmol/L (21.0-32.0); POTASSIUM - SERUM 3.7 mmol/L (3.5-5.1); PROTEIN - SERUM 5.2 g/dL (6.4-8.2)
[2018-06-11 05:30] LABS: CREATININE - SERUM 2.7 mg/dL (0.6-1.3)
[2018-06-11 05:33] VITALS: BP 124/67
[2018-06-11 08:12] VITALS: BP 121/63
[2018-06-11 08:54] LABS: % SATURATION 29 % (15-55); IRON 31 ug/dl (35-150); TOTAL IRON BIND CAPACITY 104 ug/dl (260-445); UNSAT IRON BIND CAPACITY 73 ug/dl (150-375)
[2018-06-11 09:09] LABS: PATH REVIEW PERIPHERAL SMEAR REVIEWED
[2018-06-11 11:22] VITALS: BP 128/69
[2018-06-11 15:41] VITALS: BP 139/76
[2018-06-11 16:21] LABS: PRO/CRE RATIO URINE 0.7 mg/g; PROTEIN - URINE 34.4 mg/dL (0.0-11.9)
[2018-06-11 16:59] LABS: APPEARANCE CLEAR (CLEAR); COLOR YELLOW (YELLOW); GLUCOSE NEGATIVE (NEGATIVE); NITRITE NEGATIVE (NEGATIVE); PROTEIN NEGATIVE (NEGATIVE); SPECIFIC GRAVITY 1.015 (1.005-1.020)
[2018-06-11 17:00] LABS: BILIRUBIN NEGATIVE (NEGATIVE); KETONE MODERATE mg/dL (NEGATIVE); UROBILINOGEN NORMAL (NORMAL)
[2018-06-11 17:01] LABS: BACTERIA FEW /hpf (NONE SEEN); WHITE CELLS - URINE OCC /hpf (0-5)
[2018-06-11 21:31] VITALS: BP 133/86
[2018-06-12 00:49] VITALS: BP 129/86
[2018-06-12 05:47] LABS: BASOPHILS 0 % (0-2); EOSINOPHILS 0.4 % (0-7); HEMATOCRIT 27.6 % (36.0-48.0); HEMOGLOBIN 8.8 g/dL (12-16); IMMATURE GRANULOCYTES 0.4 % (0-5); LYMPHOCYTES 6.4 % (15-50); MCH 29.4 pg (26.0-34.0); MCHC 31.9 g/dL (31.0-37.0); MCV 92.3 fL (80.0-100.0); MEAN PLATELET VOLUME 10.9 fL (7.4-10.4); NEUTROPHILS 87.8 % (40-80); RBC 2.99 10x6/uL (4.00-5.40); RDW 14.5 % (11.5-14.5); WBC 8.2 10x3/uL (4.8-10.8)
[2018-06-12 05:50] LABS: PLATELET COUNT 164 10x3/uL (130-400)
[2018-06-12 05:58] VITALS: BP 113/69
[2018-06-12 07:18] LABS: BILIRUBIN - TOTAL 0.3 mg/dL (0.2-1.3); CALCIUM 8.3 mg/dL (8.5-10.1); CHOL - HDL RATIO 3.8 ratio (2.3-4.1); LDL-HDL RATIO 2.5 ratio (1.5-3.5); MAGNESIUM - SERUM 1.6 mg/dL (1.8-2.4); POTASSIUM - SERUM 3.3 mmol/L (3.5-5.1); PROTEIN - SERUM 5.4 g/dL (6.4-8.2)
[2018-06-12 07:19] LABS: ANION GAP 12.2 mmol/L (8-16); CARBON DIOXIDE 26.1 mmol/L (21.0-32.0)
[2018-06-12 08:54] VITALS: BP 134/68
[2018-06-12 10:50] VITALS: BP 116/65
[2018-06-12 11:22] LABS: HEPATITIS C ANTIBODY <0.1 S/CO RAT (0.0-0.9)
[2018-06-12 14:14] VITALS: BP 113/70
[2018-06-12 16:52] LABS: PROTEIN - URINE 38.2 mg/dL (0.0-11.9)
[2018-06-12 19:00] VITALS: BP 118/64
[2018-06-13 02:11] VITALS: BP 136/96
[2018-06-13 04:00] VITALS: BP 124/78
[2018-06-13 06:18] LABS: BASOPHILS 0 % (0-2); EOSINOPHILS 0.1 % (0-7); HEMATOCRIT 26.2 % (36.0-48.0); HEMOGLOBIN 8.4 g/dL (12-16); IMMATURE GRANULOCYTES 0.3 % (0-5); LYMPHOCYTES 7.2 % (15-50); MCH 29.4 pg (26.0-34.0); MCHC 32.1 g/dL (31.0-37.0); MCV 91.6 fL (80.0-100.0); MEAN PLATELET VOLUME 10.8 fL (7.4-10.4); MONOCYTES 4.3 % (2-11); NEUTROPHILS 88.1 % (40-80); PLATELET COUNT 161 10x3/uL (130-400); RBC 2.86 10x6/uL (4.00-5.40); RDW 14.3 % (11.5-14.5); WBC 7.9 10x3/uL (4.8-10.8)
[2018-06-13 06:33] LABS: ALBUMIN 1.9 g/dL (3.4-5.0); ANION GAP 9.4 mmol/L (8-16); BILIRUBIN - TOTAL 0.23 mg/dL (0.2-1.3); CALCIUM 8.6 mg/dL (8.5-10.1); CARBON DIOXIDE 28.8 mmol/L (21.0-32.0); CREATININE - SERUM 1.7 mg/dL (0.6-1.3); MAGNESIUM - SERUM 1.9 mg/dL (1.8-2.4); POTASSIUM - SERUM 3.2 mmol/L (3.5-5.1); PROTEIN - SERUM 5.4 g/dL (6.4-8.2)
[2018-06-13 07:33] VITALS: BP 124/78
[2018-06-13 11:43] VITALS: BP 127/64
[2018-06-13 15:54] VITALS: BP 121/69
[2018-06-13 20:00] VITALS: BP 122/71
[2018-06-14 00:10] VITALS: BP 128/77
[2018-06-14 04:00] VITALS: BP 126/81
[2018-06-14 06:12] LABS: BASOPHILS 0 % (0-2); EOSINOPHILS 1.7 % (0-7); HEMATOCRIT 26.9 % (36.0-48.0); HEMOGLOBIN 8.7 g/dL (12-16); IMMATURE GRANULOCYTES 0.4 % (0-5); MCH 29.5 pg (26.0-34.0); MCHC 32.3 g/dL (31.0-37.0); MCV 91.2 fL (80.0-100.0); MEAN PLATELET VOLUME 10.8 fL (7.4-10.4); MONOCYTES 6.5 % (2-11); NEUTROPHILS 71.4 % (40-80); PLATELET COUNT 170 10x3/uL (130-400); RBC 2.95 10x6/uL (4.00-5.40); RDW 14.3 % (11.5-14.5)
[2018-06-14 06:19] LABS: WBC 4.8 10x3/uL (4.8-10.8)
[2018-06-14 06:32] LABS: ALBUMIN 1.9 g/dL (3.4-5.0); BILIRUBIN - TOTAL 0.29 mg/dL (0.2-1.3); CALCIUM 8.3 mg/dL (8.5-10.1); CARBON DIOXIDE 25.8 mmol/L (21.0-32.0); CREATININE - SERUM 1.5 mg/dL (0.6-1.3); MAGNESIUM - SERUM 1.7 mg/dL (1.8-2.4); PHOSPHOROUS 2.3 mg/dL (2.5-4.9); PROTEIN - SERUM 4.9 g/dL (6.4-8.2)
[2018-06-14 06:33] LABS: ANION GAP 11.9 mmol/L (8-16); POTASSIUM - SERUM 3.7 mmol/L (3.5-5.1)
[2018-06-14 08:35] VITALS: BP 113/82
[2018-06-14 11:55] VITALS: BP 119/81
[2018-06-14 17:19] VITALS: BP 108/72
[2018-06-14 20:00] VITALS: BP 126/80
[2018-06-15 00:06] VITALS: BP 146/91
[2018-06-15 04:00] VITALS: BP 122/76
[2018-06-15 06:52] LABS: HEMATOCRIT 27.2 % (36.0-48.0); HEMOGLOBIN 8.8 g/dL (12-16); MCH 29.6 pg (26.0-34.0); MCHC 32.4 g/dL (31.0-37.0); MCV 91.6 fL (80.0-100.0); MEAN PLATELET VOLUME 10.3 fL (7.4-10.4); PLATELET COUNT 179 10x3/uL (130-400); RBC 2.97 10x6/uL (4.00-5.40); RDW 14.6 % (11.5-14.5)
[2018-06-15 07:11] LABS: ANION GAP 13.4 mmol/L (8-16); CARBON DIOXIDE 26.1 mmol/L (21.0-32.0); CREATININE - SERUM 1.5 mg/dL (0.6-1.3)
[2018-06-15 07:12] LABS: WBC 2.8 10x3/uL (4.8-10.8)
[2018-06-15 07:14] LABS: POTASSIUM - SERUM 4.5 mmol/L (3.5-5.1)
[2018-06-15 07:45] LABS: EOSINOPHILS 5 % (0-7); LYMPHOCYTES 31 % (15-50); MONOCYTES 4 % (2-11); NEUTROPHILS 56 % (40-80); PLATELET ESTIMATE DECREASED
[2018-06-15 08:44] VITALS: BP 117/84
[2018-06-15 12:09] VITALS: BP 117/74
[2018-06-15 20:30] VITALS: BP 115/65
[2018-06-16 00:30] VITALS: BP 112/76
[2018-06-16 04:30] VITALS: BP 112/72
[2018-06-16 06:58] LABS: BASOPHILS 0 % (0-2); EOSINOPHILS 2.6 % (0-7); HEMATOCRIT 24.3 % (36.0-48.0); HEMOGLOBIN 7.7 g/dL (12-16); IMMATURE GRANULOCYTES 0.4 % (0-5); LYMPHOCYTES 34.9 % (15-50); MCH 29.1 pg (26.0-34.0); MCHC 31.7 g/dL (31.0-37.0); MCV 91.7 fL (80.0-100.0); MEAN PLATELET VOLUME 9.9 fL (7.4-10.4); MONOCYTES 7.1 % (2-11); PLATELET COUNT 157 10x3/uL (130-400); RBC 2.65 10x6/uL (4.00-5.40); RDW 14.5 % (11.5-14.5); WBC 2.7 10x3/uL (4.8-10.8)
[2018-06-16 06:59] LABS: ANION GAP 10.1 mmol/L (8-16); CALCIUM 8.2 mg/dL (8.5-10.1); CARBON DIOXIDE 27.3 mmol/L (21.0-32.0); CREATININE - SERUM 1.7 mg/dL (0.6-1.3); POTASSIUM - SERUM 4.4 mmol/L (3.5-5.1)
[2018-06-16 10:12] VITALS: BP 114/76
[2018-06-16 11:00] VITALS: BP 112/86
[2018-06-16 15:00] VITALS: BP 124/79
[2018-06-16 20:00] VITALS: BP 139/83
[2018-06-17 05:31] VITALS: BP 164/77
[2018-06-17 05:49] LABS: BASOPHILS 0 % (0-2); EOSINOPHILS 3.2 % (0-7); IMMATURE GRANULOCYTES 0.2 % (0-5); LYMPHOCYTES 25.2 % (15-50); MCH 29.6 pg (26.0-34.0); MCHC 32.8 g/dL (31.0-37.0); MCV 90.4 fL (80.0-100.0); MEAN PLATELET VOLUME 9.9 fL (7.4-10.4); MONOCYTES 7.2 % (2-11); NEUTROPHILS 64.2 % (40-80); PLATELET COUNT 146 10x3/uL (130-400)
[2018-06-17 06:01] LABS: RBC 3.34 10x6/uL (4.00-5.40)
[2018-06-17 06:02] LABS: HEMATOCRIT 30.2 % (36.0-48.0); HEMOGLOBIN 9.9 g/dL (12-16)
[2018-06-17 07:20] LABS: ANION GAP 14.4 mmol/L (8-16); CALCIUM 8.1 mg/dL (8.5-10.1); CARBON DIOXIDE 22.9 mmol/L (21.0-32.0); CREATININE - SERUM 1.7 mg/dL (0.6-1.3); PHOSPHOROUS 2.5 mg/dL (2.5-4.9); POTASSIUM - SERUM 4.3 mmol/L (3.5-5.1)
[2018-06-17 08:36] VITALS: BP 117/66
[2018-06-17 12:16] VITALS: BP 116/77
[2018-06-17 21:09] VITALS: BP 107/70
[2018-06-18 01:23] VITALS: BP 135/83
[2018-06-18 06:15] VITALS: BP 142/85
[2018-06-18 06:48] LABS: BASOPHILS 0.2 % (0-2); EOSINOPHILS 2.8 % (0-7); HEMATOCRIT 29.4 % (36.0-48.0); HEMOGLOBIN 9.6 g/dL (12-16); IMMATURE GRANULOCYTES 0.2 % (0-5); LYMPHOCYTES 20.4 % (15-50); MCH 29.8 pg (26.0-34.0); MCHC 32.7 g/dL (31.0-37.0); MCV 91.3 fL (80.0-100.0); MEAN PLATELET VOLUME 9.7 fL (7.4-10.4); MONOCYTES 3.4 % (2-11); PLATELET COUNT 151 10x3/uL (130-400); RBC 3.22 10x6/uL (4.00-5.40); RDW 14.9 % (11.5-14.5)
[2018-06-18 07:00] LABS: ANION GAP 14.1 mmol/L (8-16); CREATININE - SERUM 1.9 mg/dL (0.6-1.3); PHOSPHOROUS 2.5 mg/dL (2.5-4.9); POTASSIUM - SERUM 4.1 mmol/L (3.5-5.1)
[2018-06-18 08:17] VITALS: BP 120/78
[2018-06-18 13:00] VITALS: BP 125/77
[2018-06-18 20:00] VITALS: BP 123/73
[2018-06-19 04:00] VITALS: BP 120/88
[2018-06-19 05:34] LABS: BASOPHILS 0 % (0-2); EOSINOPHILS 2.1 % (0-7); HEMATOCRIT 31.3 % (36.0-48.0); IMMATURE GRANULOCYTES 0.2 % (0-5); LYMPHOCYTES 14.6 % (15-50); MCH 29.5 pg (26.0-34.0); MCHC 31.9 g/dL (31.0-37.0); MCV 92.3 fL (80.0-100.0); MEAN PLATELET VOLUME 9.8 fL (7.4-10.4); MONOCYTES 4.1 % (2-11); PLATELET COUNT 170 10x3/uL (130-400); RBC 3.39 10x6/uL (4.00-5.40); RDW 14.9 % (11.5-14.5); WBC 4.9 10x3/uL (4.8-10.8)
[2018-06-19 05:56] LABS: ANION GAP 12.4 mmol/L (8-16); CARBON DIOXIDE 26.3 mmol/L (21.0-32.0); CREATININE - SERUM 1.9 mg/dL (0.6-1.3); PHOSPHOROUS 2.2 mg/dL (2.5-4.9); POTASSIUM - SERUM 3.7 mmol/L (3.5-5.1)
[2018-06-19 08:16] VITALS: BP 133/92
[2018-06-19 11:37] VITALS: BP 111/70
[2018-06-19] MEDS ORDERED: CARAFATE1 G PO (11:37)
[2018-06-19] MEDS ORDERED: MEGACE40 MG PO (11:37)
[2018-06-19] MEDS ORDERED: PEPCID AC20 MG PO (11:37)
[2018-06-19] MEDS ORDERED: COLCRYS0.6 MG PO (11:37)
[2018-06-19] MEDS ORDERED: EPOGEN4000 U/ML SC (11:38)
[2018-06-19] MEDS ORDERED: ZYLOPRIM100 MG PO (11:38)
[2018-06-19] MEDS ORDERED: NEPHRO-VITE RX1 TAB PO (11:38)
== END 2018-06-19 18:03 | DRG 682 ==
LOC: D.ER 21:56 → D.M2 22:14
PROVIDERS: Internal Medicine Gastroenterology; Internal Medicine Nephrology
PROC: 0DJ08ZZ Inspection of Upper Intestinal Tract, Via Natural or Artificial Opening Endoscopic (ICD-10-PCS; principal; 2018-06-18 11:45)
DX: N17.9 Acute kidney failure, unspecified (principal); K29.71 Gastritis, unspecified, with bleeding; N39.0 Urinary tract infection, site not specified; I25.10 Atherosclerotic heart disease of native coronary artery without angina pectoris; N18.3 Chronic kidney disease, stage 3 (moderate); E03.9 Hypothyroidism, unspecified; M10.9 Gout, unspecified; D50.0 Iron deficiency anemia secondary to blood loss (chronic); R19.5 Other fecal abnormalities; K21.0 Gastro-esophageal reflux disease with esophagitis; E86.9 Volume depletion, unspecified; E83.42 Hypomagnesemia